=== PATIENT | female | born 1965 | race Caucasian/White ===

== ENCOUNTER 2022-11-26 08:39 | Outpatient (OUT) | payer OTHER, SELFPAY ==
--- NOTE | 2022-11-26 08:46 | CT_ITS ---
The [address] [address] Patient Name: MARY ROSENBAUM MRN: [id number] date: 1965 Sex: F Assigned Patient Location: CT Current Patient Location: CT Accession/Order Number: [id number] Exam Date: 11/26/2022 08:50 Report Date: 11/26/2022 10:15 At the request of: NON-STAFF PHYSICIAN Procedure: CT chest high res EXAMINATION: CT chest high res HISTORY: Chronic Cough R05.3 COMPARISON: No relevant comparison available. TECHNIQUE: Axial images were obtained at 10 mm intervals during inspiration and expiration in the supine and prone positions. No IV contrast given. Dose reduction techniques were achieved by using automated exposure control and/or adjustment of mA and/or kV according to patient size and/or use of iterative reconstruction technique. FINDINGS: LUNGS: 1 cm calcified granuloma within right middle lobe. No acute infiltrates, mass, air trapping, or significant chronic interstitial changes. PLEURA: No mass, effusion, or pneumothorax. CINDI: No mass or adenopathy. MEDIASTINUM: No mass or adenopathy. CHEST WALL: 1.2 cm nodule within upper inner quadrant of left breast. No axillary mass or lymphadenopathy. LIMITED ABDOMEN: No suspicious findings. Limited images of the upper abdomen. OTHER: Mechanical fusion lower cervical spine. CT/CT chest high res IMPRESSION: 1. No acute infiltrates or significant chronic interstitial changes. 2. No lymphadenopathy. 3. Upper inner quadrant of left breast contains a 1.2 cm nodule versus island of fibroglandular tissue. Mammography and ultrasound evaluation recommended. Electronically authenticated by: ANA MARÍA SANTOS Date: 11/26/2022 10:15
== END 2022-11-26 08:40 | disposition home or self-care (01) ==
LOC: CT 08:39
PROVIDERS: PCP Family Medicine
DX: R05.3 Chronic cough (principal)
CPT/HCPCS: 71250

== ENCOUNTER 2024-10-12 07:11 | Emergency (ER) | payer OTHER, SELFPAY ==
--- OUTSIDE RECORDS SUMMARY | 2023-09-09 09:00 | XMS_ITS ---
Author Organization The [facility] in [place] Address [address] [place] [address] Care Team Providers Care Supervisor Body Assembly Name Role Phone Chris Rand DO Primary Care Provider Trevon Green Unavailable [phone] REASON FOR VISIT 6 mo fu w/methacholine challenge [facility] Encounters Encounter Location Date Provider Diagnosis [facility] [place] [address] [facility] [address] [place] [address] 09/09/2023 Trevon Cagle Plan Of Treatment No Information Progress Notes * Re ROSENBAUMDOB:1965 (59 yo F)Acc No.[id number]:09/09/2023 UNLOCKED PROGRESS NOTE Follow Up Patient: Re BARR Provider: Indira Cagle MD :1965 A ge:58 Y S ex:Female Date:09/09/2023 Address:[address] [place], [place] Pcp:Chris Rand DO Subjective: * Chief Complaints: * 1 . 6 mo [facility] [place] * Medical History: Objective: * Vitals: Assessment: Plan: * Treatment: * * Electronic signature of Trevon Cagle MD, [id number] on 10/12/2024 at 07:19 AM EDT Sign off status: Pending Visit Status: O FF CANC (OFFICE CANCEL) * Provider: Indira Cagle MD Date: 0 09/09/2023 Generated for Michael rawls/Samina/Teddy on: 0 10/12/2024 07:19 AM EDT
--- OUTSIDE RECORDS SUMMARY | 2023-09-25 09:15 | XMS_ITS ---
Author Organization The [facility] in [place] Address [address] [place] [address] Care Team Providers Care Legal Administrative Assistant Name Role Phone Chris Rand DO Primary Care Provider Unava ilKayla Estrada Unavailable [phone] REASON FOR VISIT 6 mo fu w/methacholine challenge [facility] [place] Encounters Encounter Location Date Provider Diagnosis [facility] [place] [address] [facility] [address] [place] [address] 09/25/2023 Kayla Brock Plan Of Treatment No Information Progress Notes * Re ROSENBAUMDOB:1965 (59 yo F)Acc No.[id number]:09/25/2023 UNLOCKED PROGRESS NOTE Follow Up Patient: Re BARR Provider: Lia Brock CNP :1965 A ge:58 Y S ex:Female Date:09/25/2023 Address:[address] [facility] Pcp:Chris Rand DO Subjective: * Chief Complaints: * 1 . 6 mo fu w/methacholine challenge [place]. * Medical History: Objective: * Vitals: Assessment: Plan: * Treatment: * * Electronic signature of Kayla Brock [id number] on 10/12/2024 at 07:18 AM EDT Sign off status: Pending Visit Status: R /S (Rescheduled) * Provider: Lia Brock CNP Date: 0 09/25/2023 Generated for Michael rawls/Samina/Teddy on: 0 10/12/2024 07:18 AM EDT
--- OUTSIDE RECORDS SUMMARY | 2023-10-02 09:15 | XMS_ITS ---
Author Organization The [facility] in [place] Address [address] [place] [address] Care Team Providers Care Electrical Tester Battery Name Role Phone Chris Rand DO Primary Care Provider Unava ilKayla Estrada Unavailable [phone] REASON FOR VISIT 6 mo fu w/methacholine challenge [facility] Encounters Encounter Location Date Provider Diagnosis [facility] [address] [place] [address] 10/02/2023 Kayla Brock Plan Of Treatment No Information Progress Notes * Re ROSENBAUMDOB:1965 (59 yo F)Acc No.[id number]:10/02/2023 UNLOCKED PROGRESS NOTE Follow Up Patient: Re BARR Provider: Lia Brock CNP :1965 A ge:58 Y S ex:Female Date:10/02/2023 [address] [place] Pcp:Chris Rand DO Subjective: * Chief Complaints: * 1 . 6 mo fu w/methacholine challenge [facility]. * Medical History: Objective: * Vitals: Assessment: Plan: * Treatment: * * Electronic signature of Kayla Brock [email or web address] on 10/12/2024 at 07:18 AM EDT Sign off status: Pending Visit Status: O FF CANC (OFFICE CANCEL) * Provider: Lia Brock CNP Date: 0 10/02/2023 Generated for Michael rawls/Samina/Teddy on: 0 10/12/2024 07:18 AM EDT
[2024-10-12 07:14] VITALS: BP 148/103; PULSE 97; TEMP 36.7; O2SAT 97; BMI 32.1
--- OUTSIDE RECORDS SUMMARY | 2024-10-12 07:18 | XMS_ITS | Encounter Summary ---
Author Organization [facility] Address [address] [place] [address] Care Team Providers Care Linux Devops Engineer Name Role Phone Chris Rand DO Primary Care Provider +1- [phone] Encounter Details Date Type Department Care Team (Late st Contact Info) Description 12/09/2022 Abstract [facility] [address] [facility] 230 [place] [address] Chris Rand DO [address] [facility] [address] [place] [address] Social History Tobacco Use Types Packs/Day Years Used Date Smoking Tobacco: Former Cigarettes Smokeless Tobacco: Never Comments:Last smoked : 1- 5 years Alcohol Use Standard Drinks/Week Comments Yes 2 (1 standard drink = 0.6 oz pure alcohol) caffeine intake : coffee,soda 6-7 cups per day PHQ-2 Answer Date Recorded Patient Health Questionnaire-2 Score 0 09/12/2022 Comments Unknown Sex and Gender Information Value Date Recorded Sex Assigned at Not on file Legal Sex Female 7:10 PM EDT Gender Identity Not on file Sexual Orientation Not on file documented as of this encounter Plan of Treatment Not on file documented as of this encounter Visit Diagnoses Not on filedocumented in this encounter Care Teams Linux Devops Engineer Relationship Specialty Start Date End Date Chris Rand DO [address] [facility] [address] [place] [address] PCP - General Family Medicine 08/22/22 documented as of this encounter
--- OUTSIDE RECORDS SUMMARY | 2024-10-12 07:18 | XMS_ITS | Encounter Summary ---
Author Organization [facility] Address [address] [place] [address] Care Team Providers Care Knocker Out Name Role Phone Chris Rand DO Primary Care Provider +1- [phone] Encounter Details Date Type Department Care Team ([facility] st Contact Info) Description 08/27/2022 Abstract [facility] [address] [facility] 230 [place] [address] Chris Rand DO [address] [facility] 230 [place] [address] Social History Tobacco Use Types Packs/Day Years Used Date Smoking Tobacco: Former Cigarettes Smokeless Tobacco: Never Tobacco Cessation:Counseling Given: Not Answered Alcohol Use Standard Drinks/Week Comments Yes 2 (1 standard drink = 0.6 oz pur e alcohol) Comments Unknown Sex and Gender Information Value Date Recorded Sex Assigned at Not on file Legal Sex Female 7:10 PM EDT Gender Identity Not on file Sexual Orientation Not on file documented as of this encounter Plan of Treatment Not on file documented as of this encounter Visit Diagnoses Not on filedocumented in this encounter Care Teams Knocker Out Relationship Specialty Start Date End Date Chris Rand DO [address] [facility] 230 [place] [address] PCP - General Family Medicine 08/22/22 documented as of this encounter
--- OUTSIDE RECORDS SUMMARY | 2024-10-12 07:18 | XMS_ITS | Encounter Summary ---
Author Organization [facility] Address [address] [place] [address] Care Team Providers Care Over Hauler Helper Name Role Phone Chris Rand DO Primary Care Provider +1- [phone] Encounter Details Date Type Department Care Team (Late st Contact Info) Description 10/23/2022 Abstract [facility] [address] [facility] [address] [place] [address] Himanshu Lea, PT [address] [place] [address] Social History Tobacco Use Types Packs/Day Years Used Date Smoking Tobacco: Former Cigarettes Smokeless Tobacco: Never Alcohol Use Standard Drinks/Week Comments Yes 2 (1 standard drink = 0.6 oz pur e alcohol) PHQ-2 Answer Date Recorded Patient Health Questionnaire-2 [...] on filedocumented in this encounter Care Teams Over Hauler Helper Relationship Specialty Start Date End Date Chris Rand DO [address] [place] [address] PCP - General Family Medicine 08/22/22 documented as of this encounter
--- OUTSIDE RECORDS SUMMARY | 2024-10-12 07:18 | XMS_ITS | Encounter Summary ---
Author Organization [facility] Address [address] [place] [address] Care Team Providers Care Resort Desk Clerk Name Role Phone Chris Rand DO Primary Care Provider +1- [phone] Encounter Details Date Type Department Care Team (Late st Contact Info) Description 11/15/2022 Abstract [facility] [address] [facility] 230 [place] [address] Chris Rand DO [address] [facility] [address] [place] [address] Social History Tobacco Use Types Packs/Day Years [...] on filedocumented in this encounter Care Teams Resort Desk Clerk Relationship Specialty Start Date End Date Chris Rand DO [address] [facility] [address] [place] [address] PCP - General Family Medicine 08/22/22 documented as of this encounter
--- OUTSIDE RECORDS SUMMARY | 2024-10-12 07:18 | XMS_ITS | Encounter Summary ---
Author Organization [facility] Address [address] [place] [address] Care Team Providers Care Company Marker Name Role Phone Chris Rand DO Primary Care Provider +1- [phone] Encounter Details Date Type Department Care Team ([facility] st Contact Info) Description 11/19/2022 Abstract [facility] [place] [facility] [address] [place] [address] Lg Christian DO [address] [place] [address] Social History Tobacco Use Types Packs/Day Years Used Date Smoking Tobacco: Former Cigarettes Smokeless Tobacco: Never Tobacco Cessation:Counseling Given: Not Answered Comments:Last smoked : 1- 5 years Alcohol [...] on filedocumented in this encounter Care Teams Company Marker Relationship Specialty Start Date End Date Chris Rand DO [address] [facility] [place] [address] PCP - General Family Medicine 6/15/23 documented as of this encounter
--- OUTSIDE RECORDS SUMMARY | 2024-10-12 07:18 | XMS_ITS | Encounter Summary ---
Author Organization [facility] Address [address] [place] [address] Care Team Providers Care Instant Powder Supervisor Name Role Phone RhonaChris king Levon HARRELL Primary Care Provider +1- [phone] Encounter Details Date Type Department Care Team ([facility] st Contact Info) Description 11/26/2022 Orders Only [facility] [address] [facility] [place] [address] [place] [address] A, Unknown Practice [address] [place], [place] [address] Social History Tobacco Use Types Packs/Day Years [...] on file documented as of this encounter Procedures Procedure Name Priority Date/Time Associated Diagnosis Comments CT SCAN : CHEST W W/O CONTRAST Routine 11/26/2022 11:41 AM EDT documented in this encounter Results * CT SCAN : CHEST W W/O CONTRAST (11/26/2022 11:41 AM EDT) Anatomical Region Laterality Modality Radiographic Crystal ging us Unknown Practice A IMG XR PROCEDURES Final Resul t documented in this encounter Visit Diagnoses Not on filedocumented in this encounter Care Teams Instant Powder Supervisor Relationship Specialty Start Date End Date Chris Rand DO [address] [facility] 230 [place] [address] PCP - General Family Medicine 08/22/22 documented as of this encounter
--- OUTSIDE RECORDS SUMMARY | 2024-10-12 07:18 | XMS_ITS | Encounter Summary ---
Author Organization [facility] Address [address] [place] [address] Care Team Providers Care Band Presser Name Role Phone Chris Rand DO Primary Care Provider +1- [phone] Reason for Visit * Reason Comments Med Refill Encounter Details Date Type Department Care Team ([facility] Contact Info) Description 08/06/2022 Refill [facility] [address] [facility] 230 [place] [address] Chris Rand DO [address] [facility] [address] [place] [address] Chronic obstructive bronchitis (HCC) Social History Tobacco Use Types Packs/Day Years Used Date Smoking Tobacco: Never Assessed Comments Unknown Sex and Gender Information Value Date Recorded Sex Assigned at Not on file Legal Sex Female 7:10 PM EDT Gender Identity Not on file Sexual Orientation Not on file documented as of this encounter Plan of Treatment Not on file documented as of this encounter Visit Diagnoses Diagnosis Chronic obstructive bronchitis (HCC) Obstructive chronic bronchitis without exacerbation documented in this encounter Care Teams Band Presser Relationship Specialty Start Date End Date Chris Rand DO [address] [facility] 230 [place] [address] PCP - General Family Medicine 08/22/22 documented as of this encounter
--- OUTSIDE RECORDS SUMMARY | 2024-10-12 07:19 | XMS_ITS | Encounter Summary ---
Author Organization [facility] Address [address] [facility] [place] [address] Care Team Providers Care Tax Specialist Name Role Phone Chris Rand DO Primary Care Provider + [phone] Reason for Visit * Reason Comments Medication Refill Encounter Details Date Type Department Care Team (Late st Contact Info) Description 10/27/2018 Refill [facility] [address] [place] [address] James Ruffin DO [address] [place] [address] Medication Refill Social History Tobacco Use Types Packs/Day Years Used Date Smoking Tobacco: Light Smoker Smokeless Tobacco: Never Alcohol Use Standard Drinks/Week Comments Yes 0 (1 standard drink = 0.6 oz pur e alcohol) rarely Comments Unknown Sex and Gender Information Value Date Recorded Sex Assigned at Not on file Legal Sex Female 5:45 AM EST Gender Identity Not on file Sexual Orientation Not on file documented as of this encounter Plan of Treatment Not on file documented as of this encounter Visit Diagnoses Not on filedocumented in this encounter Care Teams Tax Specialist Relationship Specialty Start Date End Date Chris Rand DO [address] [facility] 230 [place] [address] PCP - General Family Medicine 08/12/23 documented as of this encounter
--- OUTSIDE RECORDS SUMMARY | 2024-10-12 07:19 | XMS_ITS | Clinical Summary ---
Author Organization [facility] Address [address] [place] [address] Care Team Providers Care Child And Family Services Specialist Name Role Phone James Rangel Primary Care Provider Unav ailable Social History Tobacco Use Types Packs/Day Years Used Date Smoking Tobacco: Never Assessed Comments Unknown Sex and Gender Information Value Date Recorded Sex Assigned at Not on file Legal Sex Female 10:02 AM EST Gender Identity Not on file Sexual Orientation Not on file Plan of Treatment Health Maintenance Due Date Last Done Comments Anxiety Screening 05/09/1985 Depression Screening 05/09/1985 HIV Screening 05/09/1985 Hepatitis C Screening 05/09/1985 DTaP,Tdap,Td Vaccine (1 - Tdap) 05/09/1986 Hepatitis B Vaccine (1 of 3 - 19+ 3-dose series) 05/09 Cervical Cancer Screening 05/09/[address] Colonography 05/09/2012 Cologuard (FIT-DNA) 05/09/2012 Colonoscopy 05/09/2012 Colorectal Cancer Screening 05/09/2012 Diabetes Screening 05/09/2012 Fecal Occult Blood 05/09/2012 Lipid Screening 05/09/2012 Sigmoidoscopy 05/09/2012 Pneumococcal Vaccine: 50+ (1 of 1 - PCV) 05/09/2017 Shingrix Vaccine (1 of 2) 05/09/2017 Influenza Vaccine (#1) 2024 Insurance [employer]ED [employer] HMO Care Teams Child And Family Services Specialist Relationship Specialty Start Date End Date James Rangel PCP - General 04/26/03
--- OUTSIDE RECORDS SUMMARY | 2024-10-12 07:19 | XMS_ITS | Encounter Summary ---
Author Organization [facility] Address [address] [place] [address] Care Team Providers Care Cpr Ambulance Driver Name Role Phone Chris Rand Levon HARRELL Primary Care Provider +1- [phone] Encounter Details Date Type Department Care Team ([facility] st Contact Info) Description 05/11/2024 Orders Only [facility] [address] [place] [address] Himanshu Navarro DO [address] [place] [address] Social History Tobacco Use Types Packs/Day Years Used Date Smoking Tobacco: Former Cigarettes Smokeless Tobacco: Never Comments:Last smoked : 1- 5 years Alcohol Use Standard Drinks/Week Comments Yes 2 (1 standard drink = 0.6 oz pure alcohol) caffeine intake : coffee,soda 6-7 cups per day PHQ-2 Answer Date Recorded Patient Health Questionnaire-2 Score 0 09/12/2022 Comments No Sex and Gender Information Value Date Recorded Sex Assigned at Not on file Legal Sex Female 7:10 PM EDT Gender Identity Not on file Sexual Orientation Not on file documented as of this encounter Plan of Treatment Not on file documented as of this encounter Procedures Procedure Name Priority Date/Time Associated Diagnosis Comments ECG 12-LEAD Routine 05/11/2024 1:28 PM EST documented in this encounter Results * ECG 12 lead (05/11/2024 1:28 PM EST) us Himanshu Navarro DO ECG ORDERABLES Final Result documented in this encounter Visit Diagnoses Not on filedocumented in this encounter Care Teams Cpr Ambulance Driver Relationship Specialty Start Date End Date Chris Rand DO [address] [facility] [address] [place] [id number] PCP - General Family Medicine 08/22/22 documented as of this encounter
--- OUTSIDE RECORDS SUMMARY | 2024-10-12 07:19 | XMS_ITS | Encounter Summary ---
Author Organization [facility] Address [address] [place] [address] Care Team Providers Care Perennial House Manager Name Role Phone Chris Rand DO Primary Care Provider +1- [phone] Reason for Visit * Reason Comments Med Refill Encounter Details Date Type Department Care Team ([facility] [address] Contact Info) Description 04/07/20[facility] [address] [facility] [address] [place] [address] [place] [phone] Chris Rand DO [address] [facility] [address] [place] [address] Urge incontinence of urine Social History Tobacco Use Types Packs/Day Years [...] as of this encounter Visit Diagnoses Diagnosis Urge incontinence of urine Urge incontinence documented in this encounter Care Teams Perennial House Manager Relationship Specialty Start Date End Date Chris Rand DO [address] [facility] [address] [place] [address] PCP - General Family Medicine 6/15/23 documented as of this encounter
--- OUTSIDE RECORDS SUMMARY | 2024-10-12 07:19 | XMS_ITS | Encounter Summary ---
Author Organization [facility] Address [address] [place] [address] Care Team Providers Care Multifocal Lens Assembler Name Role Phone Chris Rand DO Primary Care Provider +1- [phone] Reason for Visit * Reason Comments Med Refill Encounter Details Date Type Department Care Team ([facility] Contact Info) Description [facility] [address] [facility] [address] [place] [address] Chris Rand DO [address] [facility] [address] [place] [address] Urge incontinence of urine Social History Tobacco [...] incontinence documented in this encounter Care Teams Multifocal Lens Assembler Relationship Specialty Start Date End Date Chris Rand DO [address] [facility] [address] [place] [address] PCP - General Family Medicine 6/15/23 documented as of this encounter
--- OUTSIDE RECORDS SUMMARY | 2024-10-12 07:19 | XMS_ITS | Encounter Summary ---
Author Organization [facility] Address [address] [place] [address] Care Team Providers Care Tile Classifier Name Role Phone Norma Rand DO Primary Care Provider +1- [phone] Encounter Details Date Type Department Care Team ([facility] st Contact Info) Description 07/23/2023 Clinisync Result Encounter [facility] External Department Unsolicited Norma Rand, DO [address] [facility] [address] [id number] Social History Tobacco Use Types Packs/Day Years [...] Procedure Name Priority Date/Time Associated Diagnosis Comments ECHO TRANSTHORACIC COMPLETE 07/23/2023 10:57 AM EDT documented in this encounter Results * ECHO TRANSTHORACIC COMPLETE (07/23/2023 10:57 AM EDT) Anatomical Region Laterality Modality Other 07/23/2023 10:5 7 AM EDT Narrative 07/23/2023 2:18 PM EDT Echocardiology Procedure Exam Date/Time Accession # Ordering Echo Transthoracic 07/23/2023 11:38 EDT [id number] MAURA HARRELL NORMA Complete CPT code 53951 03212 Reason for Exam (Echo Transthoracic Complete) Murmur R01.1 Report [facility] [address] [place] [address] Adult Echocardiogram Report Name: MARY ROSENBAUM Study Date: 07/23/2023 11:02 AM BP: 142/77 mmHg Patient Location: [facility] HR: 92 : 1965 Gender: Female Height: 61 in Age: 58 yrs Ethnicity: [facility] Weight: 180 lb Reason For Study: Murmur R01.1 BSA: 1.8 m2 History: Palpitations,Family HX CAD Ordering Physician: ARLETH Referring Physician: NORMA RAND Performed By: Mare Valladares, AZAM, RVT Interpretation Summary Left ventricular systolic function is normal. Ejection Fraction = 60-65%. No obvious regional wall motion abnormalities noted Tissue Doppler sampling consistent with abnormal diastolic function. Procedure A complete two-dimensional transthoracic echocardiogram was performed (2D, M- mode, spectral and color flow Doppler). Left Ventricle The left ventricle is normal in size. Left ventricular systolic function is normal. Ejection Fraction = 60-65%. No obvious regional wall motion abnormalities noted. Tissue Doppler sampling consistent with abnormal diastolic function. Left Atrium The left atrial size is normal. There is no atrial septal defect. Right Atrium Right atrial size is normal. Right Ventricle The right ventricular systolic function is normal. The right ventricle is normal size. Echocardiology Report Aortic Valve Aortic valve opening is normal. Not well visualized. No aortic regurgitation. There is no aortic stenosis. Mitral Valve Mitral valve structure is normal. There is Trace mitral regurgitation. No mitral valve stenosis. Tricuspid Valve Structurally normal tricuspid valve. There is trace tricuspid regurgitation. No evidence of tricuspid stenosis. Pulmonic Valve Not well visualized. Arteries The aortic root is normal in size. The ascending aorta was not well visualized on this exam. Venous The inferior vena cava is normal in size, and collapses normally with respiration. Effusion There is no pericardial effusion. MMode/2D Measurements & Calculations RVDd: 2.3 cm LVIDd: 4.1 cm FS: 38.3 % Ao root diam: 2.6 cm IVSd: 1.3 cm LVIDs: 2.5 cm EDV(Teich): 72.5 ml Ao root area: 5.5 cm2 LVPWd: 0.90 cm ESV(Teich): 22.4 ml LA dimension: 3.2 cm EF(Teich): 69.1 % LVOT diam: 2.0 cm LVLd ap4: 8.1 cm EDV(MOD-sp2): 73.3 ml SV(MOD-sp4): 42.2 ml LVOT area: 3.1 cm2 EDV(MOD-sp4): 66.1 ml ESV(MOD-sp2): 22.0 ml LVLs ap4: 6.6 cm EF(MOD-sp2): 70.0 % ESV(MOD-sp4): 23.9 ml EF(MOD-sp4): 63.8 % TAPSE: 2.4 cm IVC Diam: 1.7 cm RV Base_phl: 2.1 cm RVIDd/LVIDd: 0.56 RV Length_phl: 7.5 cm RV Mid_phl: 1.6 cm EF (MOD-bp): 66.5 % LA Vol Index: 11.4 ml/m2 Doppler Measurements & Calculations MV E max steve: 110.0 cm/sec MV dec time: 0.19 sec Ao V2 max: 125.0 cm/sec LV V1 max P.3 mmHg MV A max steve: 108.0 cm/sec Ao max P.3 mmHg LV V1 mean P.0 mmHg MV E/A: 1.0 Ao V2 mean: 86.3 cm/sec LV V1 max: 115.0 cm/sec Lat Peak E' Steve: 10.1 cm/sec Ao mean P.0 mmHg LV V1 mean: 79.3 cm/sec E/E' Lat: 10.9 Ao V2 VTI: 21.0 cm LV V1 VTI: 21.3 cm Med Peak E' Steve: 5.7 cm/sec Echocardiology Report E/E' Med: 19.4 YOUSUF(I,D): 3.2 cm2 YOUSUF(V,D): 2.9 cm2 SV(LVOT): 67.0 ml TR max steve: 240.1 cm/sec RAP systole: 3.0 mmHg AV VR: 0.92 TR max P.1 mmHg YOUSUF(VTI)/BSA_phl: 1.8 RVSP(TR): 26.1 mmHg FINAL REPORT Dictated: 07/23/2023 11:02 am Josue Law MD Signed (Electronic Signature): 07/23/2023 2:18 pm Signed by: Josue Law MD Transcribed by: NAM Technologist: SERA Procedure Note Radiology, Radiologist, - 07/23/2023 Echocardiology Procedure Exam Date/Time Accession #Ordering Echo Transthoracic 07/23/2023 11:38 EDT [id number] HOLLY DO Complete CPT code 17315 [id number] Reason for Exam (Echo Transthoracic Complete) Murmur R01.[address], [id number] Adult EchocardiogramReport Name: MARY ROSENBAUM Study Date: 07/23/2023 11:02 AMBP: 142/77 mmHg [facility] 1965 Gender: FemaleHeight: 61 in Age: 58 yrs Ethnicity: WHTWeight: 180 lb Reason For Study: Murmur R01.1BSA: 1.8 m2 History: Palpitations,Family HX CAD Ordering Physician: ARLETH Referring Physician: NORMA RAND Performed By: Mare Valladares, AZAM, RVT Interpretation Summary Left ventricular systolic function is normal. Ejection Fraction = 60-65%. No obvious regional wall motion abnormalities noted Tissue Doppler sampling consistent with abnormal diastolic function. Procedure A complete two-dimensional transthoracic echocardiogram was performed (2D,M- mode, spectral and color flow Doppler). Left Ventricle The left ventricle is normal in size. Left ventricular systolic functionis normal. Ejection Fraction = 60-65%. No obvious regional wall motion abnormalities noted. Tissue Doppler samplingconsistent with abnormal diastolic function. Left Atrium The left atrial size is normal. There is no atrial septal defect. Right Atrium Right atrial size is normal. Right Ventricle The right ventricular systolic function is normal. The right ventricle isnormal size. Echocardiology Report Aortic Valve Aortic valve opening is normal. Not well visualized. No aorticregurgitation. There is no aortic stenosis. Mitral Valve Mitral valve structure is normal. There is Trace mitral regurgitation. Nomitral valve stenosis. Tricuspid Valve Structurally normal tricuspid valve. There is trace tricuspidregurgitation. No evidence of tricuspid stenosis. Pulmonic Valve Not well visualized. Arteries The aortic root is normal in size. The ascending aorta was not wellvisualized on this exam. Venous The inferior vena cava is normal in size, and collapses normally withrespiration. Effusion There is no pericardial effusion. MMode/2D Measurements & Calculations RVDd: 2.3 cm LVIDd: 4.1 cm FS: 38.3 %Ao root diam: 2.6 cm IVSd: 1.3 cm LVIDs: 2.5 cm EDV(Teich):72.5 ml Ao root area: 5.5 cm2 LVPWd: 0.90 cm ESV(Teich):22.4 ml LA dimension: 3.2 cm EF(Teich):69.1 % LVOT diam: 2.0 cm LVLd ap4: 8.1 cm EDV(MOD-sp2):73.3 ml SV(MOD-sp4): 42.2 ml LVOT area: 3.1 cm2 EDV(MOD-sp4): 66.1 ml ESV(MOD-sp2):22.0 ml LVLs ap4: 6.6 cm EF(MOD-sp2):70.0 % ESV(MOD-sp4): 23.9 ml EF(MOD-sp4): 63.8 % TAPSE: 2.4 cm IVC Diam: 1.7 cm RV Base_phl:2.1 cm RVIDd/LVIDd: 0.56 RVLength_phl: 7.5 cm RV Mid_phl:1.6 cm EF (MOD-bp): 66.5 % LA Vol Index: 11.4 ml/m2 Doppler Measurements & Calculations MV E max steve: 110.0 cm/sec MV dec time: 0.19 sec Ao V2 max:125.0 cm/sec LV V1 max P.3 mmHg MV A max steve: 108.0 cm/sec Ao max P.3 mmHg LV V1 mean P.0 mmHg MV E/A: 1.0 Ao V2mean: 86.3 cm/sec LV V1 max: 115.0 cm/sec Lat Peak E' Steve: 10.1 cm/sec Ao meanP.0 mmHg LV V1 mean: 79.3 cm/sec E/E' Lat: 10.9 Ao V2 VTI:21.0 cm LV V1 VTI: 21.3 cm Med Peak E' Steve: 5.7 cm/sec Echocardiology Report E/E' Med: 19.4 YOUSUF(I,D):3.2 cm2 YOUSUF(V,D):2.9 cm2 SV(LVOT): 67.0 ml TR max steve: 240.1 cm/sec RAPsystole: 3.0 mmHg AV VR: 0.92 TR max P.1 mmHg YOUSUF(VTI)/BSA_phl: 1.8 RVSP(TR): 26.1 mmHg FINAL REPORT Dictated: 07/23/2023 11:02 am Josue Law MD Signed (Electronic Signature): 07/23/2023 2:18 pm Signed by: Josue Law MD Transcribed by: NAM Technologist: us Norma Rand DO [facility] Final Re sult documented in this encounter Visit Diagnoses Not on filedocumented in this encounter Care Teams Tile Classifier Relationship Specialty Start Date End Date Norma Rand DO [address] [place] [address] PCP - General Family Medicine 08/22/22 documented as of this encounter
--- OUTSIDE RECORDS SUMMARY | 2024-10-12 07:19 | XMS_ITS | Clinical Summary ---
Author Organization [facility] Address [address], [address] [place] [address] Care Team Providers Care Multiple Knife Edge Trimmer Operator Name Role Phone Chris Rand Levon DO Primary Care Provider +1- [phone] Allergies Active Allergy Reactions Criticality Noted Date Comments Celecoxib 04/10/2016 Medications lamoTRIgine (LAMICTAL) 100 MG tablet Take 1 tablet by mouth at bedtime Active pantoprazole (PROTONIX) 40 MG tablet 7 Active DULoxetine (CYMBALTA) 30 MG extended release capsule 2 capsules nightly 0 7 Active amphetamine-dextr oamphetamine (ADDERALL) 20 MG tablet 0 8 Active fluticasone (FLONASE) 50 MCG/ACT nasal spray instill 1 spray into each nostril once daily 0 8 Active albuterol sulfate HFA 108 (90 Base) MCG/ACT inhaler 1 Active Biotin 5 MG TABS Take by mouth daily Active Cholecalciferol (VITAMIN D3) 50 MCG (2000 UT) CAPS Take by mouth Active albuterol sulfate HFA (PROVENTIL;VENTOL IN;PROAIR) 108 (90 Base) MCG/ACT inhaler Inhale 2 puffs into the lungs 2 times daily as needed for Shortness of Breath Active rOPINIRole (REQUIP) 0.25 MG tablet Take 1 tablet by mouth nightly 9 Active rosuvastatin (CRESTOR) 10 MG tablet Take 1 tablet by mouth daily 4 Active solifenacin (VESICARE) 10 MG tablet Take 1 tablet by mouth daily 4 Active vitamin E 100 units capsule 1 capsule every 24 hours Active cariprazine hcl (VRAYLAR) 3 MG CAPS capsule Take 1 capsule by mouth daily Active lamoTRIgine (LAMICTAL) 25 MG tablet Take 1 tablet by mouth 2 times daily Active diclofenac (VOLTAREN) 50 MG EC tablet Take 1 tablet by mouth 2 times daily Active Multiple Vitamins-Minerals (ONE-A-DAY 50 PLUS PO) Take 1 tablet by mouth daily Active Multiple Vitamins-Minerals (PRESERVISION AREDS 2 PO) Take 1 tablet by mouth 2 times daily Active Cobalamin Combinations (NEURIVA PLUS PO) Take 1 tablet by mouth daily Active b complex vitamins capsule Take 1 capsule by mouth daily Active magnesium 30 MG tablet Take 1 tablet by mouth daily Active Calcium Carbonate-Vit D-Min (CALCIUM 1200 PO) Take 1 tablet by mouth daily Active Glucosamine-Chond roitin-MSM 5163-6007-130 MG PACK Take 1 tablet by mouth 2 times daily Active Turmeric 400 MG CAPS Take 1 tablet by mouth daily Active vitamin C (ASCORBIC ACID) 500 MG tablet Take 1 tablet by mouth daily Active Active Problems Problem Noted Date Diagnosed Date Menopausal syndrome 04/10/2016 Overview (10/05/2016): Updating deleted diagnoses Resolved Problems Problem Noted Date Diagnosed Date Resolved Date Screening for malignant neoplasm of colon 08/12/2023 09/11/2023 Family History Medical History Relation Name Comments Breast Cancer Neg Hx Colon Cancer Neg Hx Social History Tobacco Use Types Packs/Day Years Used Date Smoking Tobacco: Former Smokeless Tobacco: Never Alcohol Use Standard Drinks/Week Comments Yes 0 (1 standard drink = 0.6 oz pur e alcohol) rarely Comments No Sex and Gender Information Value Date Recorded Sex Assigned at Not on file Legal Sex Female 5:45 AM EST Gender Identity Not on file Sexual Orientation Not on file Last Filed Vital Signs Vital Sign Reading Time Taken Comments Blood Pressure 116/58 08/12/2023 11:20 AM EDT Pulse 74 08/12/2023 11:20 AM EDT Temperature 36.7 C (98 F) 08/12/2023 9:37 AM EDT Respiratory Rate 16 08/12/2023 11:20 AM EDT Oxygen Saturation 98% 08/12/2023 11:20 AM EDT Inhaled Oxygen Concentration - - Weight 78.9 kg (174 lb) 08/12/2023 9:37 AM EDT Height 154.9 cm (5' 1 ) 08/12/2023 9:37 AM EDT Body Mass Index 32.88 08/12/2023 9:37 AM EDT Plan of Treatment Health Maintenance Due Date Last Done Comments Depression Screen 1979 HIV screen 05/09/1982 Hepatitis C screen 05/09/1985 Hepatitis B vaccine (1 of 3 - 19+ 3-dose series) 05/09/1986 Lipids 2007 FIT/FOBT: Average risk 05/09/2012 Fecal-DNA (Cologuard): Average risk 05/09/2012 Sigmoidoscopy/CT colonography 05/09/2012 Pneumococcal 50+ years Vaccine (1 of 1 - PCV) 05/09/2017 Shingles vaccine (1 of 2) 05/09/2017 COVID-19 Vaccine (1 - 2023-2 5 season) 2023 Flu vaccine (#1) 10/08/2024 12/20/2016 Breast cancer screen 02/11/2025 02/11/2023 DTaP/Tdap/Td vaccine (2 - Td or Tdap) 01/26/2028 01/25/2018 Colonoscopy 08/11/2033 08/12/2023, 08/12/2023 Colorectal Cancer Screen 08/11/2033 Cervical cancer screen Discontinued HPV (without or with Pap) Discontinued 05/23/2020 Pap smear Discontinued 05/23/2020, 05/11/2014 Hepatitis A vaccine Aged Out No longe r eligible based on patient's age to complete this topic Hib vaccine Aged Out No longer eligi ble based on patient's age to complete this topic Meningococcal (ACWY) vaccine Aged Out No longer eligible based on patient's age to complete this topic Meningococcal B vaccine Aged Out No l onger eligible based on patient's age to complete this topic Polio vaccine Aged Out No longer elig ible based on patient's age to complete this topic Procedures Procedure Name Priority Date/Time Associated Diagnosis Comments COLONOSCOPY PROCEDURE Routine 08/12/2023 10:37 AM EDT HUMAN PAPILLOMAVIRUS (HPV) DNA PROBE THIN PREP HIGH RISK Routine 05/23/2020 3:04 PM EDT PAP SMEAR Routine 05/23/2020 3:03 PM EDT Encounter for screening for human papillomavirus (HPV) Pap smear, as part of routine gynecological examination from Last 3 Months or Most Recently Relevant to Health Maintenance Results * Colonoscopy (08/12/2023 10:37 AM EDT) 08/12/2023 10:3 7 AM EDT Narrative [facility] - 08/12/2023 10:37 AM EDT [facility] Patient: MARY ROSENBAUM : 1965 Account: [id number] Sex at : Female Age: 58 Years Procedure: Colonoscopy Date: 08/12/2023 Attending Physician: Elba Urrutia Indications: - Screening for colorectal malignant neoplasm Medications: - See the Anesthesia note for documentation of the administered medications Complications: - No immediate complications. Estimated Blood Loss: - Estimated blood loss: none. Procedure: - The Colonoscope was introduced through the anus and advanced to the cecum, identified by appendiceal orifice and ileocecal valve. - The colonoscopy was performed without difficulty. - The patient tolerated the procedure well. - The quality of the bowel preparation was good. - The ileocecal valve, appendiceal orifice, and rectum were photographed. Findings: - A few small-mouthed diverticula were found in the sigmoid colon. There was no evidence of diverticular bleeding. Impression: - Mild diverticulosis in the sigmoid colon. There was no evidence of diverticular bleeding. - No specimens collected. Recommendation: - Repeat colonoscopy in 10 years for surveillance. Procedure Code(s): - G0121, Colorectal cancer screening; colonoscopy on individual not meeting criteria for high risk Diagnosis Code(s): - Z12.11, Encounter for screening for malignant neoplasm of colon - K57.30, Diverticulosis of large intestine without perforation or abscess without bleeding CPT(R) - 2023 copyright [employer]. All Rights Reserved. The CPT codes, CCI edits and ICD codes generated are intended as suggestions and were generated based on input data. These codes are preliminary and upon marine cargo surveyor review may be revised to meet current compliance and payer requirements. The provider is responsible for the final determination of appropriate codes, and modifiers. Scope Withdrawal Time: 00:09:36 Elba Urrutia MD This document has been electronically signed. Note Initiated:08/12/2023 Note Completed:08/12/2023 11:05 AM Procedure Note Juli Urrutia MD - 08/12/2023 [facility] Patient: MARY ROSENBAUM : 1965 Account: [id number] Sex at : Female Age: 58 Years Procedure: Colonoscopy Date: 08/12/2023 Attending Physician: Elba Urrutia Indications: - Screening for colorectal malignant neoplasm Medications: - See the Anesthesia note for documentation of the administeredmedications Complications: - No immediate complications. Estimated Blood Loss: - Estimated blood loss: none. Procedure: - The Colonoscope was introduced through the anus and advanced tothe cecum, identified by appendiceal orifice and ileocecal valve. - The colonoscopy was performed without difficulty. - The patient tolerated the procedure well. - The quality of the bowel preparation was good. - The ileocecal valve, appendiceal orifice, and rectum werephotographed. Findings: - A few small-mouthed diverticula were found in the sigmoid colon.There was no evidence of diverticular bleeding. Impression: - Mild diverticulosis in the sigmoid colon. There was no evidenceof diverticular bleeding. - No specimens collected. Recommendation: - Repeat colonoscopy in 10 years for surveillance. Procedure Code(s): - G0121, Colorectal cancer screening; colonoscopy on individual notmeeting criteria for high risk Diagnosis Code(s): - Z12.11, Encounter for screening for malignant neoplasm of colon - K57.30, Diverticulosis of large intestine without perforation orabscess without bleeding CPT(R) - 2023 copyright [employer]. All RightsReserved. The CPT codes, CCI edits and ICD codes generated are intended assuggestions and were generated based on input data. These codes are preliminaryand upon marine cargo surveyor review may be revised to meet current compliance and payerrequirements. The provider is responsible for the final determination ofappropriate codes, and modifiers. Scope Withdrawal Time: 00:09:36 Elba Urrutia MD This document has been electronically signed. Note Initiated:08/12/2023 Note Completed:08/12/2023 11:05 AM Juli Urrutia MD ENDOSCOPY ORDERABLES Final Res ult [facility] * Human papillomavirus (HPV) DNA probe thin prep high risk (05/23/2020 3:04 PM EDT) HPV Genotype 16 Not Detected Not Detected 05/26/2020 9:45 AM EDT [facility] HPV Type 18 Not Detected Not Detected 05/26/2020 9:45 AM EDT [facility] HPVOH (Other Types) Not Detected Not Detected 05/26/2020 9:45 AM EDT [facility] Comment:*Includes 31,33,35,3 9,45,51,52,56,58,59,66,68 genotypes HPV Comment See below 05/23/2020 3:04 PM EDT [facility] Comment: This is information only. See above for results. HPV other genotypes: 31,33,35,39,45,51,52,56,58,59,66,68 The Theresa Eunice HPV Test is a qualitative in-vitro test for the detection of Human Papillomavirus that provides specific genotyping information for HPV Types 16 and 18, while concurrently detecting 12 other high-risk HPV types 31,33,35, 39,45,51,52,56,58,59,66,68 in a pooled result. The test utilizes amplification of target DNA by Polymerase Chain Reaction (PCR) and nucleic acid hybridization. . 05/23/2020 3:04 PM EDT 05/25/2020 10:54 AM EDT us Eufemia Valadez DO HEMATOLOGY ORDERABLES Final Result [facility] [address] [place] [address], [facility] [phone] [facility] [address] [place] [address], [facility] [phone] * PAP SMEAR (05/23/2020 3:03 PM EDT) SPECIMEN FROM CERVIX OR VAGINA / Unknown 05/23/2020 3:03 PM EDT 05/24/2020 7:37 AM EDT [facility] - 05/29/2020 11:36 AM EDT [facility] [address] [place] [id number] FINAL CYTOLOGY PAP REPORT Patient Name: MARY ROSENBAUM Accession No: [id number] Age Sex: 1965 55 Y / F [facility] Account No: [id number] Collected: 05/23/2020 Med Rec No: [id number] Received: 05/24/2020 Attend Phys: EUFEMIA VALADEZ Completed: 05/29/2020 Perform Phys: EUFEMIA VALADEZ GENERAL CATEGORIZATION: Negative for Intraepithelial Lesion or Malignancy SPECIMEN ADEQUACY: Satisfactory for Evaluation Specimen: THINPREP LIQUID BASE IMAGED DIAGNOSTIC History: Source: Thin Prep Site: Vaginal History: Previous abnormal smear? None given History of CA? None given Lab Order#: [id number] Test Name Collected D&T Result HPV Type 16 05/23/2020 Not Detected HPV Type 18 05/23/2020 Not Detected HPVOH (Other types) 05/23/2020 Not Detected HPV Comment 05/23/2020 See below Test Comment: This is information only. See above for results. HPV other genotypes: 31,33,35,39,45,51,52,56,58,59,66,68 The Theresa Eunice HPV Test is a qualitative in-vitro test for the detection of Human Papillomavirus that provides specific genotyping information for HPV Types 16 and 18, while concurrently detecting 12 other high-risk HPV types 31,33,35, 39,45,51,52,56,58,59,66,68 in a pooled result. The test utilizes amplification of target DNA by Polymerase Chain Reaction (PCR) and nucleic acid hybridization. CPT: Technical: 38528 X1 Screened by: SHARA KRAUSE(ASCP) SHARA KRAUSE(ASCP) 05/29/2020 Electronically signed out by Cervical cytology is a screening test primarily for squamous cancers and precursors and has associated false negative and positive results. New technologies such as liquid based sampling may decrease but not eliminate all false negative results. Please refer to established guidelines All gynecologic cytology specimen processing and diagnostic testing is processed and screened using a [employer] Advisor at [facility] [address] [place] [address] All abnormal gynecologic interpretation is performed at [facility], unless otherwise noted in the report. Page 1 of 1 Eufemia Valadez DO PATHOLOGY/CYTOLOGY ORDERABLE S Final Result [facility] [address] [place] [address], [facility] [phone] from Last 3 Months or Most Recently Relevant to Health Maintenance Insurance Advance Directives * Full Code (Latest Code Status on File) Date Activated Date Inactivated Comments 08/12/2023 9:04 AM 08/12/2023 1:34 PM Care Teams Multiple Knife Edge Trimmer Operator Relationship Specialty Start Date End Date Chris Rand DO [address] [place] [address] PCP - General Family Medicine 08/12/23
--- OUTSIDE RECORDS SUMMARY | 2024-10-12 07:19 | XMS_ITS | Encounter Summary ---
Author Organization [facility] Address [address] [place] [address] Care Team Providers Care Strategic Sourcing Manager Name Role Phone Chris Rand DO Primary Care Provider +1- [phone] Reason for Visit * Reason Comments Med Refill Encounter Details Date Type Department Care Team ([facility] Contact Info) Description [facility] [address] [facility] [address] [place] [id number] Chris Rand DO [address] [place] [address] Acute pain of left shoulder Social History Tobacco Use Types Packs/Day Years [...] as of this encounter Visit Diagnoses Diagnosis Acute pain of left shoulder documented in this encounter Care Teams Strategic Sourcing Manager Relationship Specialty Start Date End Date Chris Rand DO [address] [facility] [address] [place] [address] PCP - General Family Medicine 08/22/22 documented as of this encounter
--- OUTSIDE RECORDS SUMMARY | 2024-10-12 07:19 | XMS_ITS | Clinical Summary ---
Author Organization [facility] Address [id number] [address] [place] [address] Care Team Providers Care Emergency Medical Technician Name Role Phone Unavailable Primary Care Provider Unavailabl e Social History Tobacco Use Types Packs/Day Years Used Date Smoking Tobacco: Never Assessed Childcare Answer Date Recorded Childcare Unknown 08/19/2018 Employment Answer Date Recorded Employment Unknown 08/19/2018 Comments Unknown Sex and Gender Information Value Date Recorded Sex Assigned at Not on file Legal Sex Female 11:56 AM EDT Gender Identity Not on file Sexual Orientation Not on file Plan of Treatment Not on file Medical Devices Not on file
--- OUTSIDE RECORDS SUMMARY | 2024-10-12 07:19 | XMS_ITS | Encounter Summary ---
Author Organization [facility] Address [address] [place] [address] Care Team Providers Care Draw Bench Operator Name Role Phone Chris Rand DO Primary Care Provider +1- [phone] Encounter Details Date Type Department Care Team (Late st Contact Info) Description 09/03/2024 Abstract [facility] [address] [facility] [address] [place] [address] Chris Rand DO [address] [facility] [address] [place] [address] Social History Tobacco Use Types Packs/Day Years Used Date Smoking Tobacco: Former Cigarettes Smokeless Tobacco: Never Comments:Last smoked : 1- 5 years Alcohol Use Standard Drinks/Week Comments Yes 2 (1 standard drink = 0.6 oz pure alcohol) caffeine intake : coffee,soda 6-7 cups per day PHQ-2 Answer Date Recorded Patient Health Questionnaire-2 Score 0 05/18/2024 Comments No Sex and Gender Information Value Date Recorded Sex Assigned at Not on file Legal Sex Female 7:10 PM EDT Gender Identity Not on file Sexual Orientation Not on file documented as of this encounter Plan of Treatment Not on file documented as of this encounter Visit Diagnoses Not on filedocumented in this encounter Care Teams Draw Bench Operator Relationship Specialty Start Date End Date Chris Rand DO [address] [facility] [address] [place] [address] PCP - General Family Medicine 08/22/22 documented as of this encounter
--- OUTSIDE RECORDS SUMMARY | 2024-10-12 07:19 | XMS_ITS | Encounter Summary ---
Author Organization [facility] Address [address] [place] [address] Care Team Providers Care Tele Tech Name Role Phone Chris Rand DO Primary Care Provider +1- [phone] Reason for Visit * Reason Comments Med Refill Encounter Details Date Type Department Care Team (Special [facility] Contact Info) Description 08/17/2024 [facility]ill [facility] [address] [facility] [address] [place] [address] Chris Rand DO [address] [facility] [address] [place] [address] Acute pain of left shoulder Social History [...] on file documented as of this encounter Miscellaneous Notes * Telephone Encounter - Fozia Khanna LPN - 08/31/2024 9:18 AM EDT PA initiated for [employer] through [facility]. Waiting for insurance to respond. documented in this encounter Plan of Treatment Not on file documented as of this encounter Visit Diagnoses Diagnosis Acute pain of left shoulder documented in this encounter Care Teams Tele Tech Relationship Specialty Start Date End Date Chris Rand DO [address] [facility] [address] [place] [address] PCP - General Family Medicine 08/22/22 documented as of this encounter
--- OUTSIDE RECORDS SUMMARY | 2024-10-12 07:19 | XMS_ITS | Encounter Summary ---
Author Organization [facility] Address [address] [facility] [place] [address] Care Team Providers Care Learning Engineer Name Role Phone Chris Rand DO Primary Care Provider +1- [phone] Encounter Details Date Type Department Care Team (Late st Contact Info) Description 08/11/2023 Orders Only [facility] [address] [facility] [place] [address] Chris Rand DO [address] [place] [address] Social History Tobacco Use Types Packs/Day Years [...] on filedocumented in this encounter Care Teams Learning Engineer Relationship Specialty Start Date End Date Chris Rand DO [address] [place] [address] PCP - General Family Medicine 08/22/22 documented as of this encounter
--- OUTSIDE RECORDS SUMMARY | 2024-10-12 07:19 | XMS_ITS | Encounter Summary ---
Author Organization [facility] Address [address] [place] [address] Care Team Providers Care Photographic Technician Name Role Phone Chris Rand DO Primary Care Provider +1- [phone] Encounter Details Date Type Department Care Team (Late st Contact Info) Description 07/24/2023 Abstract [facility] [address] [facility] 230 [place] [address] Chris Rand DO [address] [facility] [address] [place] [address] Social History Tobacco Use Types Packs/Day Years [...] on filedocumented in this encounter Care Teams Photographic Technician Relationship Specialty Start Date End Date Chrsi Rand DO [address] [facility] [address] [place] [address] PCP - General Family Medicine 08/22/22 documented as of this encounter
--- OUTSIDE RECORDS SUMMARY | 2024-10-12 07:19 | XMS_ITS | Clinical Summary ---
Author Organization [facility] Address [address] [place] [address] Care Team Providers Care Ornamental Iron Erector Name Role Phone Giorgi Chris Levon HARRELL Primary Care Provider +1- [phone] Allergies Active Allergy Reactions Criticality Noted Date Comments Celecoxib Angioedema 04/10/2016 Medications biotin (Biotin 5000) 5 MG capsule 1 capsule 1 (one) time each day at the same time Active Adderall 20 MG tablet every 8 (eight) hours Active DULoxetine (Cymbalta) [address] capsule 1 capsule 1 (one) time each day at the same time Active lamoTRIgine (LaMICtal) 100 MG tablet 25 mg in am 125 pm Active alpha tocopherol (Vitamin E) 100 units capsule 1 capsule 1 (one) time each day at the same time Active calcium acetate (Phoslo) 667 MG capsule Take 1,334 mg by mouth in the morning and 1,334 mg at noon and 1,334 mg in the evening. Take with meals. Active Ascorbic Acid (vitamin C) 500 MG tablet Take 1 tablet by mouth Daily Active b complex vitamins capsule Take 1 capsule by mouth Daily Active Cariprazine HCl 3 MG capsule Take 1 capsule by mouth Daily Active Glucosamine-Chondr oitin-MSM 0429-0472-128 MG pack Take 1 tablet by mouth in the morning and 1 tablet before bedtime. Active rosuvastatin (Crestor) 10 MG tabletIndications: Mixed hyperlipidemia TAKE 1 TABLET BY MOUTH DAILY 90 tablet 2 03/31/19 25 Active Semaglutide,0.25 or 0.5MG/DOS, (Ozempic, 0.25 or 0.5 MG/DOSE,) 2 MG/3ML solution pen-injectorIndica tions:Severe obesity (BMI 35.0-39.9) with comorbidity ([facility]),Bipolar 1 disorder ([facility]),Mixed hyperlipidemia Inject 0.25 mg under the skin 1 (one) time per week 3 mL 1 06/15/19 25 Active Fluticasone-Salmet antonella 250-50 MCG/ACT aerosol powderIndications: Chronic obstructive pulmonary disease, unspecified COPD type ([facility]) Inhale 2 puffs in the morning and 2 puffs before bedtime. 60 each 1 06/15/19 25 Active pantoprazole (ProtoNix) 40 MG EC tabletIndications: Gastroesophageal reflux disease, unspecified whether esophagitis present TAKE 1 TABLET BY MOUTH DAILY 90 tablet 1 07/09/19 25 Active albuterol HFA 90 mcg/act inhalerIndications :Chronic obstructive bronchitis ([facility]) INHALE 2 PUFFS BY MOUTH EVERY 6 HOURS NEEDED FOR WHEEZING 8.5 g 1 07/13/19 25 Active rOPINIRole (Requip) 0.25 MG tabletIndications: RLS (restless legs syndrome) TAKE 1 TABLET BY MOUTH AT BEDTIME 30 tablet 2 07/20/19 25 Active solifenacin (VESIcare) 10 MG tabletIndications: Urge incontinence of urine TAKE 1 TABLET BY MOUTH DAILY 30 tablet 2 08/24/19 25 Active diclofenac (Voltaren) 50 MG EC tabletIndications: Acute pain of left shoulder TAKE 1 TABLET BY MOUTH 2 TIMES A DAY IN THE MORNING AND AT BEDTIME *DO NOT CRUSH CHEW OR SPLIT* 60 tablet 09/21/19 25 Active diclofenac (Voltaren) 50 MG EC tabletIndications: Acute pain of left shoulder TAKE 1 TABLET BY MOUTH EVERY MORNING AND TAKE 1 TABLET BY MOUTH ONCE NIGHTLY AT BEDTIME DO NOT CRUSH, CHEW OR SPLIT 60 tablet 08/17/19 25 025 Discontinued Active Problems Problem Noted Date Diagnosed Date Current smoker 06/14/2024 Overview (06/14/2024): Added secondary to documentation in Social History. Acid reflux 06/14/2024 Chronic right shoulder pain 06/06/2024 Bipolar 1 disorder 08/22/2022 Arthritis, lumbar spine 08/22/2022 Cervical arthritis 08/22/2022 Chronic fatigue 08/22/2022 Chronic obstructive pulmonary disease 08/22/2022 COPD with exacerbation 08/22/2022 Gastroesophageal reflux disease 08/22/2022 IgA deficiency 08/22/2022 Mixed hyperlipidemia 08/22/2022 NAFLD (nonalcoholic fatty liver disease) 023 RLS (restless legs syndrome) 08/22/2022 S/P hysterectomy 08/22/2022 Urge incontinence of urine 08/22/2022 Menopausal syndrome 04/10/2016 Overview (08/22/2022): Updating deleted diagnoses Updating deleted diagnoses Resolved Problems Problem Noted Date Diagnosed Date Resolved Date Numbness 06/14/2024 06/14/2024 Acute bronchitis 06/14/2024 06/14/2024 S/P arthroscopy of right shoulder 06/06/2024 06/14/2024 Tear of left glenoid labrum 10/25/2022 06/14/2024 Acute pain of left shoulder 10/25/2022 07/07/2023 Arthritis pain of hand 08/22/202207/06 Decreased hearing of right ear 08/22/2022 07/07/2023 Obesity (BMI 30-39.9) 08/22/20222024 Vitamin D deficiency 08/22/2022 025 Encounters Date Type Department Care Team Description 09/19/2024 Refill [facility] [address] [place] [address] Chris Rand DO Acute pain of left shoulder 09/03/2024 Abstract [facility] [address] [place] [address] Chris Rand DO 08/25/2024 11:30 AM EDT Treatment [facility] [address] [place] [address] Himanshu Lea, PT Tear of left glenoid labrum, subsequent encounter (Primary Dx); S/P arthroscopy of left shoulder; Chronic left shoulder pain 08/25/2024 Travel 08/23/2024 Refill [facility] [address] [place] [address] Chris Rand, DO Urge incontinence of urine 08/17/2024 Refill [facility] [address] [place] [address] Chris Rand, DO Acute pain of left shoulder 08/16/2024 Refill [facility] [address] [place] [address] Chris Rand, DO Acute pain of left shoulder 08/11/2024 10:30 AM EDT Treatment [facility] [address] [place] [address] Himanshu Lea, PT Tear of left glenoid labrum, subsequent encounter (Primary Dx); S/P arthroscopy of left shoulder; Chronic left shoulder pain 08/11/2024 [employer] [facility] [address] [place] [address] Himanshu Lea, PT 08/11/2024 Travel 08/04/2024 9:15 AM EDT Treatment [facility] [address] [place] [address] Himanshu Lea, PT Tear of left glenoid labrum, subsequent encounter (Primary Dx); S/P arthroscopy of left shoulder; Chronic left shoulder pain 08/04/2024 [employer] [facility] [address] [place] [address] Himanshu Lea, PT 08/04/2024 Travel 07/28/2024 10:00 AM EDT Treatment [facility] [address] [place] [address] Himanshu Lea, PT Tear of left glenoid labrum, subsequent encounter (Primary Dx); S/P arthroscopy of left shoulder; Chronic left shoulder pain 07/28/2024 [employer] [facility] [address] [place] [address] Himanshu Lea, PT 07/28/2024 Travel 07/22/2024 10:00 AM EDT Treatment [facility] [address] [place] [address] Himanshu Lea, PT Tear of left glenoid labrum, subsequent encounter (Primary Dx); S/P arthroscopy of left shoulder; Chronic left shoulder pain 07/22/2024 [employer]sheet [facility] [address] [place] [address] Himanshu Lea, PT 07/22/2024 Travel 07/20/2024 9:45 AM EDT Treatment [facility] [address] [place] [address] Himanshu Lea, PT Tear of left glenoid labrum, subsequent encounter (Primary Dx); S/P arthroscopy of left shoulder; Chronic left shoulder pain 07/20/2024 Refill [facility] [address] [place] [address] Chris Rand, DO Acute pain of left shoulder 07/20/2024 [facility] [address] [place] [address] Himanshu Lea, PT 07/20/2024 Travel 07/17/2024 Refill [facility] [address] [place] [address] Chris Rand, RLS (restless legs syndrome) 07/14/2024 1:30 PM EDT Treatment [facility] [address] [place] [address] Himanshu Lea, PT Tear of left glenoid labrum, subsequent encounter (Primary Dx); S/P arthroscopy of left shoulder; Chronic left shoulder pain 07/14/2024 [employer] flowsheet [facility] [address] [place] [address] Himanshu Lea, PT 07/14/2024 Travel 07/12/2024 Refill [facility] [address] [place] [address] Chris Rand, Chronic obstructive bronchitis (HCC) from Last 3 Months Family History Medical History Relation Name Comments No Known Problems Brother No Known Problems Daughter Atrial fibrillation Mother Depression Mother back and neck problems Mother maker blockage Mother Relation Name Status Comments Brother Alive 1 brother Daughter Alive 1 daughter Father Alive Mother Alive Social History Tobacco Use Types Packs/Day Years Used Date Smoking Tobacco: Former Cigarettes Smokeless Tobacco: Never Tobacco Cessation:Counseling Given: Yes Comments:Last smoked : 1- 5 years Alcohol [...] Sign Reading Time Taken Comments Blood Pressure 120/74 06/14/2024 11:01 AM EDT Pulse 106 06/14/2024 11:01 AM EDT Temperature 36.8 C (98.2 F) 06/14/2024 11:01 AM EDT Respiratory Rate - - Oxygen Saturation 97% 06/14/2024 11:01 AM EDT Inhaled Oxygen Concentration - - Weight 85.7 kg (189 lb) 07/05/2024 9:51 AM EDT Height 152.4 cm (5') 07/05/2024 9:51 AM EDT Body Mass Index 36.91 07/05/2024 9:51 AM EDT Plan of Treatment Health Maintenance Due Date Last Done Comments CT Colonography 1967 FIT-DNA 1967 FIT 1967 FOBT 1967 Sigmoidoscopy 1967 Mammogram 02/12/2024 02/11/2023 Influenza Vaccine (#1) 2024 12/20/2016 Colonoscopy 08/11/2033 08/12/2023, 08/12/2023, 02/08 Colorectal Cancer Screening 08/11/2033 Cervical Cancer Screening Discontinued HPV/Cotest Discontinued 05/23/2020, 05/23/2020 Pap Smear Discontinued 05/23/2020 Procedures Procedure Name Priority Date/Time Associated Diagnosis Comments BI MAMMOGRAM DIAGNOSTIC TOMOSYNTHESIS BILATERAL Routine 02/11/2023 1:15 PM EST Cyst of breast, unspecified laterality COLONOSCOPY Routine 03/05/2016 12:00 PM EST from Last 3 Months or Most Recently Relevant to Health Maintenance Results * Bilateral diagnostic mammogram with tomosynthesis (02/11/2023 1:15 PM EST) Anatomical Region Laterality Modality Breast Bilateral Mammography 02/11/2023 1:20 PM EST Impressions 02/11/2023 1:23 PM EST BIRADS 2 - Benign Recommended follow-up: Routine Screening Mamm Board Certified Radiologists. Accredited by the ACR and FDA. MAMMOGRAPHY IS VERY IMPORTANT TO YOUR HEALTH. THE [employer] GUIDELINES RECOMMEND THAT WOMEN 40 YEARS OF AGE AND OLDER SHOULD HAVE A MAMMOGRAM EVERY YEAR. A REMINDER LETTER WILL BE SENT AT THE APPROPRIATE TIME. THIS FACILITY UTILIZES A REMINDER SYSTEM TO ENSURE ALL PATIENTS RECEIVE REMINDER NOTIFICATIONS AT THE APPROPRIATE TIME BASED ON THE RECOMMENDATIONS OF THIS EXAM. THIS INCLUDES REMINDERS FOR ROUTINE SCREENING MAMMOGRAMS, DIAGNOSTIC MAMMOGRAMS IN WHICH THE PATIENT IS ASKED TO RETURN FOR ADDITIONAL VIEWS, OR OTHER BREAST IMAGING INTERVENTIONS WHEN APPROPRIATE. THE PATIENT WILL BE PLACED IN THE APPROPRIATE REMINDER SYSTEM INCLUDING A REMINDER AT THE APPROPRIATE TIME FOR ANY PENDING ADDITIONAL VIEWS. ELECTRONICALLY SIGNED BY: Cesar Drew MD Narrative 02/11/2023 1:23 PM EST EXAMINATION: BI MAMMOGRAM DIAGNOSTIC TOMOSYNTHESIS BILATERAL CLINICAL HISTORY: breast cysts left nipple tenderness for 6 months. COMPARISON: [facility] from 2014. RESULT: 3-D tomosynthesis imaging of the bilateral breast(s) was performed. Density: Heterogeneously dense [3] There are no suspicious masses or asymmetries, areas of architectural distortion or suspicious areas of microcalcifications. Stable asymmetry within the left medial breast. Few coarse appearing benign calcifications. Procedure Note Cesar Drew MD - 02/11/2023 EXAMINATION: BI MAMMOGRAM DIAGNOSTIC TOMOSYNTHESIS BILATERAL CLINICAL HISTORY: breast cysts left nipple tenderness for 6 months. COMPARISON: [facility] from 2015, 2014. RESULT: 3-D tomosynthesis imaging of the bilateral breast(s) was performed. Density: Heterogeneously dense [3] There are no suspicious masses or asymmetries, areas of architecturaldistortion or suspicious areas of microcalcifications. Stable asymmetrywithin the left medial breast. Few coarse appearing benigncalcifications. IMPRESSION: BIRADS 2 - Benign Recommended follow-up: Routine Screening Mamm Board Certified Radiologists. Accredited by the ACR and FDA. MAMMOGRAPHY IS VERY IMPORTANT TO YOUR HEALTH. THE [employer]UID[employer] RECOMMEND THAT WOMEN 40 YEARS OF AGE AND OLDER SHOULD HAVE AMAMMOGRAM EVERY YEAR. A REMINDER LETTER WILL BE SENT AT THE APPROPRIATE TIME. THIS FACILITYUTILIZES A REMINDER SYSTEM TO ENSURE ALL PATIENTS RECEIVE REMINDERNOTIFICATIONS AT THE APPROPRIATE TIME BASED ON THE RECOMMENDATIONS OF THISEXAM. THIS INCLUDES REMINDERS FOR ROUTINE SCREENING MAMMOGRAMS, DIAGNOSTICMAMMOGRAMS IN WHICH THE PATIENT IS ASKED TO RETURN FOR ADDITIONAL VIEWS,OR OTHER BREAST IMAGING INTERVENTIONS WHEN APPROPRIATE. THE PATIENT WILLBE PLACED IN THE APPROPRIATE REMINDER SYSTEM INCLUDING A REMINDER AT THEAPPROPRIATE TIME FOR ANY PENDING ADDITIONAL VIEWS. ELECTRONICALLY SIGNED BY: Cesar Drew MD Chris Rand DO IMG BI PROCEDURES Final Re sult * Colonoscopy (03/05/2016 12:00 PM EST) Anatomical Region Laterality Modality Endoscopy 03/05/2016 12:0 0 PM EST Narrative 03/14/2016 12:00 PM EST PERFORMED AT [facility] LOCATION:[id number] normal Procedure Note CONVERSION, GENERIC - 07/25/2022 PERFORMED AT [facility] LOCATION:[id number] normal Chris Rand DO ENDOSCOPY PROCEDURE ORDERA BLES Final Result from Last 3 Months or Most Recently Relevant to Health Maintenance Insurance [facility] Care Teams Ornamental Iron Erector Relationship Specialty Start Date End Date Chris Rand DO [address] [address] PCP - General Family Medicine 08/22/22
--- OUTSIDE RECORDS SUMMARY | 2024-10-12 07:19 | XMS_ITS | Patient Health Record ---
Author Organization [facility] [place] Address [address] [place] [address] Care Team Providers Care Make Up Worker Name Role Phone RhonagabrielChris dasilva DO Primary Care Provider Unava ilable Allergies Allergen (clinical drug ingredient) Drug/Non Drug Allergy documented on EMR Reaction Allergy Type Onset Date Status celecoxib Celebrex hives Drug Allergy Active Reason For Referral No Information Medications Medication SIG (Take, Route, Frequency, Duration) Notes Start Date End Date Status Diclofenac 35 MG 1 capsule as needed Orally BID Active Glucosamine MSM Complex - 1 tablet with meals Orally BID 1500 mg Not-Taking lamoTRIgine 25 MG 1 tablet Orally Once a day Active Magnesium Carbonate 250 MG Orally Active Albuterol Sulfate HFA 108 (90 Base) MCG/ACT 2 puff as needed Inhalation every 4 hrs Active Biotin 500 mcg 1 capsule Orally Once a day Active Cymbalta 60 MG 1 capsule Orally Once a day Active Calcium Citrate 1 tablet BID Caclium citrate [id number] in-vit d3 200 [id number] Active VESIcare 10 MG 1 tablet Orally Once a day for 30 day(s) Active Nabumetone 750 MG Orally No t-Taking Vraylar 3 MG 1 capsule Orally Once a day for 30 day(s) Active Pantoprazole Sodium 40 MG Orally Active Multivitamin - one tablet Orally Daily one-a-day Active Requip Active Myrbetriq 25 MG Orally Not- Taking Adderall 20 MG 1 TABLET Orally TID Active ARIPiprazole 2 MG 1 tablet Orally Once a day for 30 day(s) Not-Taking Vitamin E 400 UNIT 1 capsule Orally Once a day Active Advair Diskus 250-50 MCG/ACT 1 puff Inhalation Twice a day Active Baclofen 10 MG Orally PRN Not-T aking PriLOSEC 20 MG 1 capsule Orally Once a day for 30 day(s) Not-Taking ARIPiprazole 10 MG 1 tablet Orally Daily Not-Taking Vitamin D3 2000 UNIT 1 capsule Orally Once a day Active Social History Tobacco Use: Social History Observation Description Date Details (start date - stop date) Former Smoker NA - NA Tobacco Use/Smoking Question Answer Notes Patient is a former smoker How long has it been since you last smoked? 6-12 months Alcohol Screen (Audit-C) Question Answer Notes Did you have a drink containing alcohol in the p ast year? No Points 0 Interpretation Negative Tobacco use other than smoking: Question Answer Notes Are you an other tobacco user? No Section Notes: quit smoking 08/08/15 Tobacco-years of use: 20 years Hobbies or leisure activities: Reading, Traveling, Fishing quit smoking 08/08/15 Tobacco-years of use: 20 years Hobbies or leisure activities: Reading, Traveling, Fishing quit smoking 08/08/15 Tobacco-years of use: 20 years Hobbies or leisure activities: Reading, Traveling, Fishing quit smoking 08/08/15Tobacco-years of use: 20 years Hobbies or leisure activities: Reading, Traveling, Fishing quit smoking 08/08/15Tobacco-years of use: 20 years Hobbies or leisure activities: Reading, Traveling, Fishing quit smoking 08/08/15Tobacco-years of use: 20 years Hobbies or leisure activities: Reading, Traveling, Fishing quit smoking 08/08/15Tobacco-years of use: 20 years Hobbies or leisure activities: Reading, Traveling, Fishing quit smoking 08/08/15Tobacco-years of use: 20 years Hobbies or leisure activities: Reading, Traveling, Fishing quit smoking 08/08/15Tobacco-years of use: 20 years Hobbies or leisure activities: Reading, Traveling, Fishing quit smoking 08/08/15Tobacco-years of use: 20 years Hobbies or leisure activities: Reading, Traveling, Fishing quit smoking 08/08/15Tobacco-years of use: 20 years Hobbies or leisure activities: Reading, Traveling, Fishing quit smoking 08/08/15Tobacco-years of use: 20 years Hobbies or leisure activities: Reading, Traveling, Fishing Smoking status: Former smoker quit 08/08/15 Smoking - how much: None Tobacco-years of use: 20 years Are you on a special diet: No Chewing tobacco: none Do you take illicit drugs: No Alcohol intake: Occasional Have you ever undergone treatment for drug/alcohol problems: No 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 Employer: [employer] Are you working now: Yes Are you retired: No Are you on disability: No Temporary Disability: No Permanent disability: No Job activities: Reach over head , sit, bend, stand, use computer Hobbies or leisure activities: Reading, Traveling, Fishing Problems Problem Type SNOMED Code ICD Code Onset Dates Problem Status W/U Status Risk Notes Problem 262868590 Obesity, unspecified (E66.9) Active confirmed Problem 139659890 Fibromyalgia (M79.7) Active confirmed Problem 869656738 Personal history of nicotine dependence (Z87.891) Active confirmed Problem 32785441 Vitamin D deficiency (E55.9) Active confirmed Problem 627663542 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) Active confirmed Problem 775904781 Cervical myelopathy (G95.9) Active confirmed Problem 43916539 Chronic cough (R05.3) Active confirmed Plan Of Treatment Pending Test Test Name Order Date Methacholine Challenge Testing PFT Complete 07/18/2022 Future Test Test Name Order Date CT Chest High Resolution 11/13/2022 PFT w/Bronchodillator and w/o Body Box-p erformed 12/04/2022 Medical (General) History Medical History History ICD Code Headaches/Migraines Depression Visual problems: glasses Pneumonia - as a child Tuberculosis - as a child Heartburn/Gastritis Arthritis fibromyalgia Depression Pneumonia - as a child Tuberculosis - as a child Heartburn/Gastritis Arthritis Surgical History Surgery Date(Month/Year) Hysterectomy . Dr. Kearns 2005 Anterior cervical discectomy and fusion for decompression 09/12/15
[2024-10-12 07:20] VITALS: BP 133/88
[2024-10-12] MEDS: OXYMETAZOLINE HCL 0.05% NASAL SPRAY 2 SPRAY NS (07:31)
--- NOTE | 2024-10-12 08:20 | ED.EPISTAXI1 ---
HPI - Epistaxis General Chief Complaint: Epistaxis Stated Complaint: BLOODY NOSE Time Seen by Provider: 10/12/24 07:16 Source: patient Mode of arrival: walk-in Limitations: no limitations History of Present Illness HPI Narrative: The patient is coming to the ER with a right sided epistaxis that started almost 6 hours before arrival, tried conservative management and mentioned that pressure as well as ice did not help, patient mentioned that the bleeding started when she was just sitting, she also mentioned that she have a history of perforated nasal septum The patient denies any head trauma or any other concerns and she does not take any anticoagulation Related Data Home Medications ?Medication ?Instructions ?Recorded ?Confirmed albuterol sulfate 90 mcg/actuation 2 inh inhalation Q4H PRN shortness 10/12/24 10/12/24 aerosol inhaler of breath or wheezing dextroamphetamine-amphetamine 20 20 mg PO TID 10/12/24 10/12/24 mg tablet diclofenac sodium 50 mg 50 mg PO DAILY 10/12/24 10/12/24 tablet,delayed release duloxetine 20 mg capsule,delayed 20 mg PO DAILY 10/12/24 10/12/24 release fluticasone 250 mcg-salmeterol 50 1 inh inhalation Q12H 10/12/24 10/12/24 mcg/dose blistr powdr for inhalation lamotrigine 25 mg tablet (Lamictal) 25 mg PO Q12H 10/12/24 10/12/24 lamotrigine 25 mg tablet (Lamictal) 25 mg PO Q12H 10/12/24 10/12/24 pantoprazole 40 mg tablet,delayed 40 mg PO DAILY 10/12/24 10/12/24 release ropinirole 0.25 mg tablet 0.25 mg PO DAILY 10/12/24 10/12/24 rosuvastatin 10 mg tablet 10 mg PO DAILY 10/12/24 10/12/24 Previous Rx's ?Medication ?Instructions ?Recorded cephalexin 500 mg capsule 500 mg PO Q8H 7 days #21 caps 10/12/24 Allergies Allergy/AdvReac Type Severity Reaction Status Date / Time celecoxib (From Celebrex) Allergy Unknown Hives Verified 10/12/24 07:14 Review of Systems ROS Status of ROS 10 or more systems reviewed and unremarkable except as noted in history and below PFSH PFSH Social History Little interest or pleasure in doing things: not at all Feeling down, depressed, or hopeless: not at all Exam Narrative Exam Narrative: Nurses notes and vital signs reviewed and patient is not hypoxic. General: Well-appearing and in no apparent distress. Skin: Warm, dry, no pallor noted. No rash. Head: Normocephalic, atraumatic. Neck: Supple, non-tender. Eye: Pupils are equal, round and EOMI. No scleral icterus. Ears, Nose, Mouth, and Throat: There was an active right sided nasal bleeding mostly anterior although I cannot rule out the posterior bleeding to the patient had only a blood clot in the back of the pharynx that was not actively bleeding. But leaning forward did show that the patient have dribbling of blood from the right nostril. There was no deviation of the septum noticed and the airway was not compromised. Cardiovascular: Regular Rate and Rhythm without murmur, gallop or rub. Respiratory: No accessory muscle use or respiratory distress. Lungs are clear to auscultation, no wheezing, rales or rhonchi Chest Wall: no tenderness Back: No midline thoracic or lumbar vertebral tenderness. No CVA tenderness Musculoskeletal: normal ROM, no calf or popliteal tenderness, no lower extremity edema/swelling GI: Abdomen is soft, non-distended. Normal bowel sounds. No masses appreciated. No tenderness to palpation. No rebound, guarding, or rigidity noted. Neurological: A&O x4. No cranial nerve dysfunction observed. No truncal ataxia. Constitutional Vital Signs, click to edit/add: Last Vital Signs Temp 98.1 F 10/12/24 07:14 Pulse 97 H 10/12/24 07:14 Resp 18 10/12/24 07:14 BP 133/88 10/12/24 07:20 Pulse Ox 97 10/12/24 07:14 O2 Del Method Room Air 10/12/24 07:14 Course Vital Signs Vital signs: Vital Signs Temperature 98.1 F 10/12/24 07:14 Pulse Rate 97 H 10/12/24 07:14 Respiratory Rate 18 10/12/24 07:14 Blood Pressure 148/103 H 10/12/24 07:14 Pulse Oximetry 97 10/12/24 07:14 Oxygen Delivery Method Room Air 10/12/24 07:14 Temperature 98.1 F 10/12/24 07:14 Pulse Rate 97 H 10/12/24 07:14 Respiratory Rate 18 10/12/24 07:14 Blood Pressure 133/88 10/12/24 07:20 Pulse Oximetry 97 10/12/24 07:14 Oxygen Delivery Method Room Air 10/12/24 07:14 MDM - Epistaxis MDM Narrative Medical decision making narrative: The patient on arrival had initially pressure applied in addition to Afrin but the patient continued to bleed with pressure Placement of the Rhino Rocket mostly anterior 5.5 cm was enough to control the bleeding I did call Dr. Oglesby from the ENT service and the patient was already following up with , the patient right now will be discharged to remove the Rhino Rocket after 24 hours she also provided with antibiotic prescription of Keflex just in case the Rhino Rocket will stay more than 24 hours The patient to call your ENT doctor today and make sure that she have an appointment as soon as possible The patient instructed but monitoring symptoms she is to come back to the ER in case of any new symptoms or concerns The patient is to follow up with primary care physician in next 2-3 days or to return to the emergency department should any of the signs or symptoms worsen or new symptoms develop. The patient agrees with the following Diagnosis and Treatment plan and the patient will be discharged home. Discharge Plan Discharge Chief Complaint: Epistaxis Clinical Impression: Epistaxis Patient Disposition: Home, Self-Care Time of Disposition Decision: 08:45 Condition: Good Prescriptions / Home Meds: New cephalexin 500 mg capsule 500 mg PO Q8H 7 Days Qty: 21 0RF No Action albuterol sulfate 90 mcg/actuation HFA aerosol inhaler 2 inh INHALATION Q4H PRN (Reason: shortness of breath or wheezing) dextroamphetamine-amphetamine 20 mg tablet 20 mg PO TID diclofenac sodium 50 mg tablet,delayed release (DR/EC) 50 mg PO DAILY fluticasone propion-salmeterol 250-50 mcg/dose blister with device 1 inh INHALATION Q12H pantoprazole 40 mg tablet,delayed release (DR/EC) 40 mg PO DAILY ropinirole 0.25 mg tablet 0.25 mg PO DAILY rosuvastatin 10 mg tablet 10 mg PO DAILY duloxetine 20 mg capsule,delayed release(DR/EC) 20 mg PO DAILY lamotrigine [Lamictal] 25 mg tablet 25 mg PO Q12H lamotrigine [Lamictal] 25 mg tablet 25 mg PO Q12H Print Language: Tamazight Instructions: Nosebleed (ED) Referrals: BRITTNY GOMES [Physician] - As soon as possible NORMA LORENZO [Primary Care Provider, Unknown] - 1 week
[2024-10-12 09:17] VITALS: BP 121/91; PULSE 87; O2SAT 98
== END 2024-10-12 09:17 | disposition home or self-care (01) ==
PROVIDERS: Emergency Provider Emergency Medicine; PCP Family Medicine
DX: R04.0 Epistaxis (principal)
CPT/HCPCS: 30901; 99283

== ENCOUNTER 2024-10-15 11:30 | Emergency (ER) | payer OTHER, SELFPAY ==
[2024-10-15 11:34] VITALS: BP 147/87; PULSE 110; TEMP 36.9; O2SAT 97; BMI 32.1
--- NOTE | 2024-10-15 11:39 | ED.GENADUL1 ---
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 She had this inflatable nasal packing placed in her right side 3 days ago. She has not had any problems since then. She has not been able to see her ENT physician. Related Data Home Medications ?Medication ?Instructions ?Recorded ?Confirmed albuterol sulfate 90 mcg/actuation 2 inh inhalation Q4H PRN shortness 10/12/24 10/12/24 aerosol inhaler of breath or wheezing dextroamphetamine-amphetamine 20 20 mg PO TID 10/12/24 10/12/24 mg tablet diclofenac sodium 50 mg 50 mg PO DAILY 10/12/24 10/12/24 tablet,delayed release duloxetine 20 mg capsule,delayed 20 mg PO DAILY 10/12/24 10/12/24 release fluticasone 250 mcg-salmeterol 50 1 inh inhalation Q12H 10/12/24 10/12/24 mcg/dose blistr powdr for inhalation lamotrigine 25 mg tablet (Lamictal) 25 mg PO Q12H 10/12/24 10/12/24 lamotrigine 25 mg tablet (Lamictal) 25 mg PO Q12H 10/12/24 10/12/24 pantoprazole 40 mg tablet,delayed 40 mg PO DAILY 10/12/24 10/12/24 release ropinirole 0.25 mg tablet 0.25 mg PO DAILY 10/12/24 10/12/24 rosuvastatin 10 mg tablet 10 mg PO DAILY 10/12/24 10/12/24 Previous Rx's ?Medication ?Instructions ?Recorded cephalexin 500 mg capsule 500 mg PO Q8H 7 days #21 caps 10/12/24 Allergies Allergy/AdvReac Type Severity Reaction Status Date / Time celecoxib (From Celebrex) Allergy Unknown Hives Verified 10/15/24 11:33 Review of Systems ROS Narrative A ten point review of systems is negative except as noted above. PFSH PFSH Social History Little interest or pleasure in doing things: not at all Feeling down, depressed, or hopeless: not at all Exam Narrative Exam Narrative: Nurses note and vital signs reviewed and patient is not hypoxic. General: The patient appears well and in no apparent distress. Patient is resting comfortably on cart. Skin: Warm, dry, no pallor noted. There is no rash noted. Head: Normocephalic, atraumatic Eye: Normal conjunctiva, no drainage Ears, Nose, Mouth, and Throat: oral mucosa is moist. Inflatable packing present on the right side. Cardiovascular: Regular Rate and Rhythm Respiratory: Patient is in no distress, no accessory muscle use Back: non-tender GI: Soft and nontender Musculoskeletal: No joint swelling Neurological: A&O, normal speech Psychiatric: Cooperative Constitutional Vital Signs, click to edit/add: Last Vital Signs Temp 98.4 F 10/15/24 11:34 Pulse 110 H 10/15/24 11:34 Resp 18 10/15/24 11:34 BP 147/87 H 10/15/24 11:34 Pulse Ox 97 10/15/24 11:34 O2 Del Method Room Air 10/15/24 11:34 Course Vital Signs Vital signs: Vital Signs Temperature 98.4 F 10/15/24 11:34 Pulse Rate 110 H 10/15/24 11:34 Respiratory Rate 18 10/15/24 11:34 Blood Pressure 147/87 H 10/15/24 11:34 Pulse Oximetry 97 10/15/24 11:34 Oxygen Delivery Method Room Air 10/15/24 11:34 Temperature 98.4 F 10/15/24 11:34 Pulse Rate 110 H 10/15/24 11:34 Respiratory Rate 18 10/15/24 11:34 Blood Pressure 147/87 H 10/15/24 11:34 Pulse Oximetry 97 10/15/24 11:34 Oxygen Delivery Method Room Air 10/15/24 11:34 Medical Decision Making [facility] Narrative Medical decision making narrative: I have removed the packing and there is no subsequent epistaxis. She was observed here and is able to be discharged. Treatment diagnosis and follow-up were discussed with the patient. Differential Diagnosis Differential Diagnosis: Packing removal Discharge Plan Discharge Chief Complaint: Recheck/Abnormal Lab/Rx Clinical Impression: Encounter for removal of nasal packing Patient Disposition: Home, Self-Care Time of Disposition Decision: 11:41 Condition: Good Mode of Transportation: Private Vehicle Prescriptions / Home Meds: No Action albuterol sulfate 90 mcg/actuation HFA aerosol inhaler 2 inh INHALATION Q4H PRN (Reason: shortness of breath or wheezing) dextroamphetamine-amphetamine 20 mg tablet 20 mg PO TID diclofenac sodium 50 mg tablet,delayed release (DR/EC) 50 mg PO DAILY fluticasone propion-salmeterol 250-50 mcg/dose blister with device 1 inh INHALATION Q12H pantoprazole 40 mg tablet,delayed release (DR/EC) 40 mg PO DAILY ropinirole 0.25 mg tablet 0.25 mg PO DAILY rosuvastatin 10 mg tablet 10 mg PO DAILY duloxetine 20 mg capsule,delayed release(DR/EC) 20 mg PO DAILY lamotrigine [Lamictal] 25 mg tablet 25 mg PO Q12H lamotrigine [Lamictal] 25 mg tablet 25 mg PO Q12H cephalexin 500 mg capsule 500 mg PO Q8H 7 Days Qty: 21 0RF Print Language: Icelandic Instructions: Nosebleed (ED) Referrals: NORMA LORENZO [Primary Care Provider, Unknown] - 1 week
== END 2024-10-15 12:08 | disposition home or self-care (01) ==
PROVIDERS: Emergency Provider Emergency Medicine; PCP Family Medicine
DX: Z48.01 Encounter for change or removal of surgical wound dressing (principal)
CPT/HCPCS: 99281

== ENCOUNTER 2024-12-11 00:01 | Emergency (ER) | payer OTHER, SELFPAY ==
--- OUTSIDE RECORDS SUMMARY | 2023-09-09 09:00 | XMS_ITS ---
Author Organization The [facility] in [place] Address [address] [place] [address] Care Team Providers Care Wire Stitcher Machine Name Role Phone Chris Rand DO Primary Care Provider Trevon Green Unavailable [phone] REASON FOR VISIT 6 mo fu w/methacholine challenge [facility] Encounters Encounter Location Date Provider Diagnosis [facility] [place] [address] [facility] [address] [place] [address] 09/09/2023 Trevon Cagle Plan Of Treatment No Information Progress Notes * Re ROSENBAUMDOB:1965 (59 yo F)Acc No.[id number]:09/09/2023 UNLOCKED PROGRESS NOTE Follow Up Patient: Re BARR Provider: Indira Cagle MD :1965 A ge:58 Y S ex:Female Date:09/09/2023 Address:[address] [place], [place] Pcp:Chris Rand DO Subjective: * Chief Complaints: * 1 . 6 mo fu w/[facility] [place] * Medical History: Objective: * Vitals: Assessment: Plan: * Treatment: * * Electronic signature of Trevon Cagle MD, [id number] on 12/11/2024 at 12:21 AM EDT Sign off status: Pending Visit Status: O FF CANC (OFFICE CANCEL) * Provider: Indira Cagle MD Date: 0 09/09/2023 Generated for Michael rawls/Samina/Teddy on: 1 12:21 AM EDT
--- OUTSIDE RECORDS SUMMARY | 2023-09-25 09:15 | XMS_ITS ---
Author Organization The [facility] in [place] Address [address] [place] [address] Care Team Providers Care Histology Technician Name Role Phone Chirs Rand DO Primary Care Provider Unava ilKayla Estrada Unavailable [phone] REASON FOR VISIT 6 mo fu w/methacholine challenge [facility] [place] Encounters Encounter Location Date Provider Diagnosis [facility] [place] [address] [facility] [address] [place] [address] 09/25/2023 Kayla Brock Plan Of Treatment No Information Progress Notes * Re ROSENBAUMDOB:1965 (59 yo F)Acc No.[id number]:09/25/2023 UNLOCKED PROGRESS NOTE Follow Up Patient: Re BARR Provider: Lia Brock CNP :1965 A ge:58 Y S ex:Female Date:09/25/2023 Address:[address] [facility] Pcp:Chris Rand DO Subjective: * Chief Complaints: * 1 . 6 mo fu w/methacholine challenge [place]. * Medical History: Objective: * Vitals: Assessment: Plan: * Treatment: * * Electronic signature of Kayla Brock [id number] on 12/11/2024 at 12:13 AM EDT Sign off status: Pending Visit Status: R /S (Rescheduled) * Provider: Lia Brock CNP Date: 0 09/25/2023 Generated for Michael rawls/Samina/Teddy on: 1 12:13 AM EDT
[2024-12-11 00:05] VITALS: BP 135/81; PULSE 99; TEMP 36.6; O2SAT 98; BMI 33.6
--- OUTSIDE RECORDS SUMMARY | 2024-12-11 00:10 | XMS_ITS | Encounter Summary ---
Author Organization [facility] Address [address] [place] [address] Care Team Providers Care Account Support Manager Name Role Phone Chris Rand DO Primary Care Provider +1- [phone] Encounter Details Date Type Department Care Team ([facility] st Contact Info) Description 08/27/2022 Abstract [facility] [address] [facility] [address] [place] [phone] Chris Rand DO [address] [facility] [address] [place] [address] Social History Tobacco Use Types Packs/Day Years [...] on filedocumented in this encounter Care Teams Account Support Manager Relationship Specialty Start Date End Date Chris Rand DO [address] [facility] [address] [place] [address] PCP - General Family Medicine 08/22/22 documented as of this encounter
--- OUTSIDE RECORDS SUMMARY | 2024-12-11 00:10 | XMS_ITS | Encounter Summary ---
Author Organization [facility] Address [address] [place] [address] Care Team Providers Care Student Life Coordinator Name Role Phone Chris Rand DO Primary Care Provider +1- [phone] Reason for Visit * Reason Comments Med Refill Encounter Details Date Type Department Care Team ([facility] Contact Info) Description 08/06/2022 Refill [facility] [address] [facility] [address] [place] [phone] Chris Rand DO [address] [facility] [address] [place] [address] Chronic obstructive bronchitis (HCC) Social History Tobacco [...] exacerbation documented in this encounter Care Teams Student Life Coordinator Relationship Specialty Start Date End Date Chris Rand DO [address] [facility] [address] [place] [address] PCP - General Family Medicine 08/22/22 documented as of this encounter
--- OUTSIDE RECORDS SUMMARY | 2024-12-11 00:11 | XMS_ITS | Encounter Summary ---
Author Organization [facility] Address [address] [place] [address] Care Team Providers Care Charge Account Clerk Name Role Phone Chris Rand DO Primary Care Provider +1- [phone] Encounter Details Date Type Department Care Team (Late st Contact Info) Description 12/09/2022 Abstract [facility] [address] [facility] [address] [place] [phone] Chris Rand DO [address] [facility] [address] [place] [address] Social History Tobacco Use Types Packs/Day Years [...] on filedocumented in this encounter Care Teams Charge Account Clerk Relationship Specialty Start Date End Date Chris Rand DO [address] [facility] [address] [place] [address] PCP - General Family Medicine 08/22/22 documented as of this encounter
--- OUTSIDE RECORDS SUMMARY | 2024-12-11 00:11 | XMS_ITS | Encounter Summary ---
Author Organization [facility] Address [address] [place] [address] Care Team Providers Care Pumping Plant Operator Name Role Phone RhonaChris king Levon HARRELL Primary Care Provider +1- [phone] Encounter Details Date Type Department Care Team ([facility] st Contact Info) Description 11/26/2022 Orders Only [facility] [address] [facility] [address] [place] [address] [place] [phone] A, Unknown Practice [address] [place], [place] [id number] Social History Tobacco Use Types Packs/Day Years [...] on filedocumented in this encounter Care Teams Pumping Plant Operator Relationship Specialty Start Date End Date Chris Rand DO [address] [facility] [address] [place] [address] PCP - General Family Medicine 08/22/22 documented as of this encounter
--- OUTSIDE RECORDS SUMMARY | 2024-12-11 00:12 | XMS_ITS | Encounter Summary ---
Author Organization [facility] Address [address] [place] [address] Care Team Providers Care Rotary Furnace Tender Name Role Phone Chris Rand DO Primary Care Provider +1- [phone] Encounter Details Date Type Department Care Team (Late st Contact Info) Description 11/15/2022 Abstract [facility] [address] [facility] [address] [place] [phone] Chris Rand DO [address] [facility] [address] [place] [address] Social History Tobacco Use Types Packs/Day Years [...] on filedocumented in this encounter Care Teams Rotary Furnace Tender Relationship Specialty Start Date End Date Chris Rand DO [address] [facility] [address] [place] [address] PCP - General Family Medicine 08/22/22 documented as of this encounter
--- OUTSIDE RECORDS SUMMARY | 2024-12-11 00:13 | XMS_ITS | Encounter Summary ---
Author Organization [facility] Address [address] [place] [address] Care Team Providers Care Stone Polisher Machine Name Role Phone Chris Rand DO Primary Care Provider +1- [phone] Encounter Details Date Type Department Care Team ([facility] st Contact Info) Description 11/19/2022 Abstract [facility] [place] [facility] [address] [place] [phone] Lg Christian DO [address] [place] [address] Social History Tobacco Use Types Packs/Day Years [...] on filedocumented in this encounter Care Teams Stone Polisher Machine Relationship Specialty Start Date End Date Chris Rand DO [address] [place] [facility] [place] [address] PCP - General Family Medicine 6/15/23 documented as of this encounter
--- OUTSIDE RECORDS SUMMARY | 2024-12-11 00:14 | XMS_ITS | Encounter Summary ---
Author Organization [facility] Address [address] [place] [address] Care Team Providers Care Ancillary Specialist Name Role Phone Chris Rand DO Primary Care Provider +1- [phone] Encounter Details Date Type Department Care Team (Late st Contact Info) Description 10/23/2022 Abstract [facility] [address] [facility] [address] [place] [phone] Himanshu Lea, PT [address] [place] [address] Social History Tobacco Use Types Packs/Day Years [...] on filedocumented in this encounter Care Teams Ancillary Specialist Relationship Specialty Start Date End Date Chris Rand DO [address] [place] [address] PCP - General Family Medicine 08/22/22 documented as of this encounter
--- OUTSIDE RECORDS SUMMARY | 2024-12-11 00:15 | XMS_ITS | Clinical Summary ---
Author Organization [facility] Address [address], [address] [place] [address] Care Team Providers Care Business Development Associate Name Role Phone Chris Rand Levon DO Primary Care Provider +1- [phone] Allergies Active Allergy Reactions Criticality Noted Date [...] tablet by mouth daily Active Glucosamine-Chond roitin-MSM 9698-2061-761 MG PACK Take 1 tablet by mouth [...] 05/09/2017 Shingles vaccine (1 of 2) 05/09/2017 Flu vaccine (#1) 10/08/2024 12/20/2016 COVID-19 Vaccine (1 - 2023-2 5 season) 2024 Breast cancer screen 02/11/2025 02/11/2023 DTaP/Tdap/Td vaccine [...] [facility] MUSE - 08/12/2023 10:37 AM EDT [facility] Patient: MARY ROSENBAUM : 1965 Account: [id number] Sex at : Female Age: 58 Years [...] abscess without bleeding CPT(R) - 2023 copyright [employer]. All Rights Reserved. The CPT codes, CCI edits and ICD codes generated are intended as suggestions and were generated based on input data. These codes are preliminary and upon reuse technician review may be revised to meet current compliance and payer requirements. The provider is responsible for the final determination of appropriate codes, and modifiers. Scope Withdrawal Time: 00:09:36 Elba Urrutia MD This document has been electronically signed. Note Initiated:08/12/2023 Note Completed:08/12/2023 11:05 AM Procedure Note Juli Urrutia MD - 08/12/2023 [facility] Patient: MARY ROSENBAUM : 1965 Account: [id number] Sex at : Female Age: 58 Years [...] orabscess without bleeding CPT(R) - 2023 copyright [employer]. All RightsReserved. The CPT codes, CCI edits and ICD codes generated are intended assuggestions and were generated based on input data. These codes are preliminaryand upon reuse technician review may be revised to meet current [...] Detected Not Detected 05/26/2020 9:45 AM EDT [facility] HPV Type 18 Not Detected Not Detected 05/26/2020 9:45 AM EDT [facility] HPVOH (Other Types) Not Detected Not Detected 05/26/2020 9:45 AM EDT [facility] Comment:*Includes 31,33,35,3 9,45,51,52,56,58,59,66,68 genotypes HPV Comment See below 05/23/2020 3:04 PM EDT [facility] Comment: This is information only. See [...] Eufemia Valadez DO HEMATOLOGY ORDERABLES Final Result [facility] [address] [place] [address], [facility] [phone] [facility] [address] [facility] [place] [address], [facility] [phone] * PAP SMEAR (05/23/2020 3:03 PM EDT) SPECIMEN FROM CERVIX OR VAGINA / Unknown 05/23/2020 3:03 PM EDT 05/24/2020 7:37 AM EDT [facility] - 05/29/2020 11:36 AM EDT [facility] [address] [place] [address] FINAL CYTOLOGY PAP REPORT Patient Name: MARY ROSENBAUM Accession No: [id number] Age Sex: 1965 55 Y / F Location: [facility] Account No: [id number] Collected: 05/23/2020 Med Rec No: [id number] Received: 05/24/2020 Attend Phys: EUFEMIA VALADEZ Completed: 05/29/2020 Perform Phys: EUFEMIA VALADEZ GENERAL CATEGORIZATION: Negative for Intraepithelial Lesion or Malignancy SPECIMEN ADEQUACY: Satisfactory for Evaluation Specimen: THINPREP LIQUID BASE IMAGED DIAGNOSTIC History: Source: Thin Prep Site: Vaginal History: Previous abnormal smear? None given History of CA? None given Lab Order#: [id number] Test Name Collected D&T Result HPV Type [...] (PCR) and nucleic acid hybridization. CPT: Technical: 02843 X1 Screened by: SHARA KRAUSE(ASCP) SHARA KRAUSE(ASCP) [...] processed and screened using a Thin Prep Charge Loader at [facility] [address] [place] [address] All abnormal gynecologic interpretation is performed at [facility], unless otherwise noted in the report. Page 1 of 1 Eufemia Valadez DO PATHOLOGY/CYTOLOGY ORDERABLE S Final Result [facility] [address] [place] [address], [facility] [phone] from Last 3 Months or Most Recently Relevant to Health Maintenance Insurance Advance Directives * Full Code (Latest Code Status on File) Date Activated Date Inactivated Comments 08/12/2023 9:04 AM 08/12/2023 1:34 PM Care Teams Business Development Associate Relationship Specialty Start Date End Date Chris Rand DO [address] [place] [address] PCP - General Family Medicine 08/12/23
--- OUTSIDE RECORDS SUMMARY | 2024-12-11 00:16 | XMS_ITS | Patient Health Record ---
Author Organization [facility] [place] Address [address] [place] [address] Care Team Providers Care Cooling Machine Operator Name Role Phone Rhonafernando Chris HARRELL Primary Care Provider Unava ilable Allergies Allergen [...] Calcium Citrate 1 tablet BID Caclium citrate 976nr-jfscrnw-v in-vit d3 200 gbeg-p5-eutjqne Active VESIcare 10 MG 1 tablet Orally Once a day; Duration: 30 day(s) Active Nabumetone 750 MG Orally No t-Taking Vraylar 3 MG 1 capsule Orally Once a day; Duration: 30 day(s) Active Pantoprazole Sodium 40 MG Orally Active Multivitamin - one tablet Orally Daily one-a-day Active Requip Active Myrbetriq 25 MG Orally Not- Taking Adderall 20 MG 1 TABLET Orally TID Active ARIPiprazole 2 MG 1 tablet Orally Once a day; Duration: 30 day(s) Not-Taking Vitamin E 400 UNIT 1 capsule Orally Once a day Active Advair Diskus 250-50 MCG/ACT 1 puff Inhalation Twice a day Active Baclofen 10 MG Orally PRN Not-T aking PriLOSEC 20 MG 1 capsule Orally Once a day; Duration: 30 day(s) Not-Taking ARIPiprazole 10 MG 1 [...] undergone treatment for drug/alcohol problems: No 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 Employer: [employer] Are you working now: Yes Are you retired: No Are you on disability: No Temporary Disability: No Permanent disability: No Job activities: Reach over head , sit, bend, stand, use computer Hobbies or leisure activities: Reading, Traveling, Fishing Problems Problem Type SNOMED Code ICD Code Onset Dates Problem Status W/U Status Risk Notes Problem Obesity (484867124) Obesity, unspecified (E66.9) Active confirmed Problem Fibromyalgia (019586700) Fibromyalgia (M79.7) Active confirmed Problem Nicotine dependence (06737623) Personal history of nicotine dependence (Z87.891) Active confirmed Problem Vitamin D deficiency (48798488) Vitamin D deficiency (E55.9) Active confirmed Problem Cervical spondylosis without myelopathy (187490590) 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) Active confirmed Problem Cervical myelopathy (676781511) Cervical myelopathy (G95.9) Active confirmed Problem Chronic cough (58110644) Chronic cough (R05.3) Active confirmed Plan Of [...]
--- OUTSIDE RECORDS SUMMARY | 2024-12-11 00:17 | XMS_ITS | Clinical Summary ---
Author Organization [facility] Address [address] [place] [address] Care Team Providers Care Temporary Receptionist Name Role Phone James Rangel Primary Care [...] Insurance [employer] HMO Care Teams Temporary Receptionist Relationship Specialty Start Date End Date James Rangel PCP - General 04/26/03
--- OUTSIDE RECORDS SUMMARY | 2024-12-11 00:19 | XMS_ITS | Clinical Summary ---
Author Organization [facility] Address [address] [place] [address] Care Team Providers Care Patient Support Assistant Name Role Phone Giorgi Chris Levon HARRELL Primary Care Provider +1- [phone] Allergies Active Allergy Reactions Criticality Noted Date [...] capsule by mouth Daily Active Glucosamine-Chondr oitin-MSM 4902-6861-505 MG pack Take 1 tablet by mouth in the morning and 1 tablet before bedtime. Active rosuvastatin (Crestor) 10 MG tabletIndications: Mixed hyperlipidemia TAKE 1 TABLET BY MOUTH DAILY 90 tablet 2 03/31/19 25 Active Semaglutide,0.25 or 0.5MG/DOS, (Ozempic, 0.25 or 0.5 MG/DOSE,) 2 MG/3ML solution pen-injectorIndica tions:Severe obesity (BMI 35.0-39.9) with comorbidity ([facility]),Bipolar [address]),Mixed hyperlipidemia Inject 0.25 mg under the skin 1 (one) time per week 3 mL 1 06/15/19 25 Active pantoprazole (ProtoNix) 40 MG EC tabletIndications: Gastroesophageal reflux disease, unspecified whether esophagitis present TAKE 1 TABLET BY MOUTH DAILY 90 tablet 1 07/09/19 25 Active albuterol HFA 90 mcg/act inhalerIndications :Chronic obstructive bronchitis ([facility]) INHALE 2 PUFFS BY MOUTH EVERY 6 HOURS NEEDED FOR WHEEZING 8.5 g 1 07/13/19 25 Active diclofenac (Voltaren) 50 MG EC tabletIndications: Acute pain of left shoulder TAKE 1 TABLET BY MOUTH 2 TIMES A DAY IN THE MORNING AND AT BEDTIME *DO NOT CRUSH CHEW OR SPLIT* 60 tablet 09/21/19 25 Active rOPINIRole (Requip) 0.25 MG tabletIndications: RLS (restless legs syndrome) TAKE 1 TABLET BY MOUTH AT BEDTIME 30 tablet 2 10/20/19 25 Active Fluticasone-Salmet antonella 250-50 MCG/ACT aerosol powderIndications: Chronic obstructive pulmonary disease, unspecified COPD type ([facility]) Inhale 2 puffs in the morning and 2 puffs before bedtime. 60 each 3 10/28/19 25 Active solifenacin (VESIcare) 10 MG tabletIndications: Urge incontinence of urine TAKE 1 TABLET BY MOUTH DAILY 30 tablet 2 11/20/19 25 Active solifenacin (VESIcare) 10 MG tabletIndications: Urge incontinence of urine TAKE 1 TABLET BY MOUTH DAILY 30 tablet 2 08/24/19 25 025 Discontinued Active Problems Problem Noted [...] Encounters Date Type Department Care Team Description 11/19/2024 Refill [facility] [address] [place] [address] Chris Rand, DO Urge incontinence of urine 10/27/2024 Telephone [facility] [address] [place] [address] Chris Rand, DO Medication Question 10/19/2024 Refill [facility] [address] [place] [address] Chris Rand, DO RLS (restless legs syndrome) 10/14/2024 Telephone [facility] [address] [place] [address] Arleth Chau MA 10/12/2024 Abstract [facility] [address] [place] [address] Chris Rand, 09/19/20[address] [facility] [place] [address] [place] [address] Chris Rand, DO Acute pain of left shoulder from Last 3 Months Family History Medical [...] IS VERY IMPORTANT TO YOUR HEALTH. THE [employer] GUIDELINES RECOMMEND THAT WOMEN 40 [...] IS VERY IMPORTANT TO YOUR HEALTH. THE [employer]UID[employer]INES RECOMMEND THAT WOMEN 40 YEARS [...] VIEWS. ELECTRONICALLY SIGNED BY: Cesar Drew MD us Chris Rand DO IMG BI PROCEDURES Final Re sult * Colonoscopy (03/05/2016 12:00 PM EST) Anatomical Region Laterality Modality Endoscopy 03/05/2016 12:0 0 PM EST Narrative 03/14/2016 12:00 PM EST PERFORMED AT [facility] LOCATION:[id number] normal Procedure Note CONVERSION, GENERIC - 07/25/2022 PERFORMED AT [facility] LOCATION:[id number] normal us Chris Rand DO ENDOSCOPY PROCEDURE ORDERA BLES Final Result from Last 3 Months or Most Recently Relevant to Health Maintenance Insurance [employer] Care Teams Patient Support Assistant Relationship Specialty Start Date End Date Chris Rand DO [address] [address] PCP - General Family Medicine 08/22/22
--- OUTSIDE RECORDS SUMMARY | 2024-12-11 00:20 | XMS_ITS | Encounter Summary ---
Author Organization [facility] Address [address] [place] [address] Care Team Providers Care Billboard Erector Name Role Phone Chris Rand DO Primary Care Provider +1- [phone] Reason for Visit * Reason Comments Med Refill Encounter Details Date Type Department Care Team ([facility] Contact Info) Description [facility] [address] [place] [address] Chris Rand DO [address] [place] [address] Urge incontinence of urine Social History Tobacco [...] incontinence documented in this encounter Care Teams Billboard Erector Relationship Specialty Start Date End Date Chris Rand DO [address] [facility] [facility] [address] [place] [address] PCP - General Family Medicine 6/15/23 documented as of this encounter
--- OUTSIDE RECORDS SUMMARY | 2024-12-11 00:20 | XMS_ITS | Encounter Summary ---
Author Organization [facility] Address [address] [place] [address] Care Team Providers Care Construction Plant Operator Name Role Phone Chris Rand DO Primary Care Provider +1- [phone] Encounter Details Date Type Department Care Team (Late st Contact Info) Description 07/24/2023 Abstract [facility] [address] [facility] [address] [place] [address] Chris Rand DO [address] [facility] [address] [place] [address] Social History Tobacco Use Types Packs/Day Years [...] on filedocumented in this encounter Care Teams Construction Plant Operator Relationship Specialty Start Date End Date Chris Rand DO [address] [facility] [address] [place] [address] PCP - General Family Medicine 08/22/22 documented as of this encounter
--- OUTSIDE RECORDS SUMMARY | 2024-12-11 00:20 | XMS_ITS | Encounter Summary ---
Author Organization [facility] Address [address] [place] [address] Care Team Providers Care Linter Saw Sharpener Name Role Phone Chris Rand DO Primary Care Provider +1- [phone] Encounter Details Date Type Department Care Team (Late st Contact Info) Description 08/11/2023 Orders Only [facility] [address] [place] [address] Chris Rand DO [address] [place] [address] Social History Tobacco Use Types Packs/Day Years [...] on filedocumented in this encounter Care Teams Linter Saw Sharpener Relationship Specialty Start Date End Date Chris Rand DO [address] [place] [address] PCP - General Family Medicine 08/22/22 documented as of this encounter
--- OUTSIDE RECORDS SUMMARY | 2024-12-11 00:20 | XMS_ITS | Encounter Summary ---
Author Organization [facility] Address [address] [place] [address] Care Team Providers Care Paper Machine Tender Name Role Phone Chris Rand DO Primary Care Provider +1- [phone] Encounter Details Date Type Department Care Team (Late st Contact Info) Description 09/03/2024 Abstract [facility] [address] [facility] [address] [place] [address] Chris Rand DO [address] [facility] [address] [place] [address] Social History Tobacco Use Types Packs/Day Years [...] on filedocumented in this encounter Care Teams Paper Machine Tender Relationship Specialty Start Date End Date Chris Rand DO [address] [facility] [address] [place] [address] PCP - General Family Medicine 08/22/22 documented as of this encounter
--- OUTSIDE RECORDS SUMMARY | 2024-12-11 00:21 | XMS_ITS | Encounter Summary ---
Author Organization [facility] Address [address] [place] [address] Care Team Providers Care Tracer Bullet Section Supervisor Name Role Phone Chris Rand DO Primary Care Provider +1- [phone] Reason for Visit * Reason Comments Med Refill Encounter Details Date Type Department Care Team ([facility] Contact Info) Description [facility]/2023 [facility] [address] [facility] [address] [place] [address] Chris Rand DO [address] [place] [address] Acute pain of left shoulder Social History [...] shoulder documented in this encounter Care Teams Tracer Bullet Section Supervisor Relationship Specialty Start Date End Date Chris Rand DO [address] [facility] [address] [place] [address] PCP - General Family Medicine 08/22/22 documented as of this encounter
--- OUTSIDE RECORDS SUMMARY | 2024-12-11 00:22 | XMS_ITS | Encounter Summary ---
Author Organization [facility] Address [address] [place] [address] Care Team Providers Care Senior Cost Analyst Name Role Phone Chris Rand DO Primary Care Provider +1- [phone] Reason for Visit * Reason Comments Med Refill Encounter Details Date Type Department Care Team ([facility] Contact Info) Description 08/17/2024 [facility] [address] [facility] [address] [place] [address] Chris Rand DO [address] [facility] [address] [place] [address] Acute pain of left shoulder Social History [...] AM EDT PA initiated for [facility] through [facility]. Waiting for insurance to respond. documented in this encounter Plan of Treatment Not on file documented as of this encounter Visit Diagnoses Diagnosis Acute pain of left shoulder documented in this encounter Care Teams Senior Cost Analyst Relationship Specialty Start Date End Date Chris Rand DO [address] [facility] [address] [place] [address] PCP - General Family Medicine 08/22/22 documented as of this encounter
--- OUTSIDE RECORDS SUMMARY | 2024-12-11 00:23 | XMS_ITS | Clinical Summary ---
Author Organization [facility] Address [id number] [address] [place] [address] Care Team Providers Care E Business Project Manager Name Role Phone Unavailable Primary Care Provider [...]
--- OUTSIDE RECORDS SUMMARY | 2024-12-11 00:23 | XMS_ITS | Encounter Summary ---
Author Organization [facility] Address [address], [address] [place] [address] Care Team Providers Care Reefer Engineer Name Role Phone Chris Rand DO Primary Care Provider + [phone] Reason for Visit * Reason Comments Medication Refill Encounter Details Date Type Department Care Team (Late st Contact Info) Description 10/27/2018 Refill [facility] [address] [place] [address] James Ruffin DO [address] [place] [address] Medication Refill Social History Tobacco Use Types [...] on filedocumented in this encounter Care Teams Reefer Engineer Relationship Specialty Start Date End Date Chris Rand DO [address] [facility] [address] [place] [address] PCP - General Family Medicine 08/12/23 documented as of this encounter
--- OUTSIDE RECORDS SUMMARY | 2024-12-11 00:24 | XMS_ITS | Encounter Summary ---
Author Organization [facility] Address [address] [place] [address] Care Team Providers Care Spool Fixer Name Role Phone Chris Rand Levon HARRELL Primary Care Provider +1- [phone] Encounter Details Date Type Department Care Team ([facility] st Contact Info) Description 05/11/2024 Orders Only [facility] [address] [place] [address] Himanshu Navarro DO [address] [place] [address] Social History Tobacco Use Types Packs/Day Years [...] on filedocumented in this encounter Care Teams Spool Fixer Relationship Specialty Start Date End Date Chris Rand DO [address] [place] [id number] PCP - General Family Medicine 08/22/22 documented as of this encounter
--- OUTSIDE RECORDS SUMMARY | 2024-12-11 00:24 | XMS_ITS | Encounter Summary ---
Author Organization [facility] Address [address] [place] [address] Care Team Providers Care Brand Strategist Name Role Phone Chris Rand DO Primary Care Provider +1- [phone] Reason for Visit * Reason Comments Med Refill Encounter Details Date Type Department Care Team ([facility] Contact Info) Description [facility] [address] [facility] [address] [place] [address] Chris Rand DO [address] [place] [address] Urge incontinence of urine Social History Tobacco [...] incontinence documented in this encounter Care Teams Brand Strategist Relationship Specialty Start Date End Date Chris Rand DO [address] [facility] [address] [place] [address] PCP - General Family Medicine 6/15/23 documented as of this encounter
--- NOTE | 2024-12-11 00:42 | ED.GENADUL1 ---
HPI HPI - General Adult General Chief complaint: Skin/Abscess/Foreign Body Stated complaint: laceration Time Seen by Provider: 12/11/24 00:03 Source: patient Mode of arrival: walk-in Limitations: no limitations History of Present Illness HPI narrative: 59-year-old female presented to the emergency department for laceration to the right index finger sustained a few hours ago on a sharp piece of her truck, and handle. It has been more than 10 years since a tetanus immunization and this was updated tonight. No weakness or numbness and no other injury was sustained. Related Data Home Medications ?Medication ?Instructions ?Recorded ?Confirmed albuterol sulfate 90 mcg/actuation 2 inh inhalation Q4H PRN shortness 10/12/24 12/11/24 aerosol inhaler of breath or wheezing dextroamphetamine-amphetamine 20 20 mg PO TID 10/12/24 10/12/24 mg tablet diclofenac sodium 50 mg 50 mg PO DAILY 10/12/24 10/12/24 tablet,delayed release duloxetine 20 mg capsule,delayed 20 mg PO DAILY 10/12/24 10/12/24 release fluticasone 250 mcg-salmeterol 50 1 inh inhalation Q12H 10/12/24 10/12/24 mcg/dose blistr powdr for inhalation lamotrigine 25 mg tablet (Lamictal) 25 mg PO Q12H 10/12/24 10/12/24 lamotrigine 25 mg tablet (Lamictal) 25 mg PO Q12H 10/12/24 10/12/24 pantoprazole 40 mg tablet,delayed 40 mg PO DAILY 10/12/24 10/12/24 release ropinirole 0.25 mg tablet 0.25 mg PO DAILY 10/12/24 10/12/24 rosuvastatin 10 mg tablet 10 mg PO DAILY 10/12/24 10/12/24 Allergies Allergy/AdvReac Type Severity Reaction Status Date / Time celecoxib (From Celebrex) Allergy Unknown Hives Verified 12/11/24 00:10 Review of Systems ROS Narrative A ten point review of systems is negative except as noted above. PFSH PFSH Social History Little interest or pleasure in doing things: not at all Feeling down, depressed, or hopeless: not at all Exam Narrative Exam Narrative: Nurses note and vital signs reviewed and patient is not hypoxic. General:The patient appears well and in no apparent distress.Patient is resting comfortably on cart. Skin:Warm, dry, no pallor noted.There is no rash noted. Head:Normocephalic, atraumatic Eye: Normal conjunctiva, no drainage Ears, Nose, Mouth, and Throat: oral mucosa is moist. Nares patent. Cardiovascular:Regular Rate and Rhythm Respiratory:Patient is in no distress, no accessory muscle use Back:non-tender, no CVA tenderness bilaterally to percussion. GI: Soft and nontender Musculoskeletal: There is a J-shaped laceration 2 cm in length on the right index finger adjacent to the nail and approaching the DIP joint. DIP has full range of motion. Nail is unaffected. Minimal bleeding easily controlled with pressure present. Neurological: Awake and alert Psychiatric:Cooperative Constitutional Vital Signs, click to edit/add: Last Vital Signs Temp 97.9 F 12/11/24 00:05 Pulse 99 H 12/11/24 00:05 Resp 16 12/11/24 00:05 BP 135/81 12/11/24 00:05 Pulse Ox 98 12/11/24 00:05 O2 Del Method Room Air 12/11/24 00:05 Course Vital Signs Vital signs: Vital Signs Temperature 97.9 F 12/11/24 00:05 Pulse Rate 99 H 12/11/24 00:05 Respiratory Rate 16 12/11/24 00:05 Blood Pressure 135/81 12/11/24 00:05 Pulse Oximetry 98 12/11/24 00:05 Oxygen Delivery Method Room Air 12/11/24 00:05 Temperature 97.9 F 12/11/24 00:05 Pulse Rate 99 H 12/11/24 00:05 Respiratory Rate 16 12/11/24 00:05 Blood Pressure 135/81 12/11/24 00:05 Pulse Oximetry 98 12/11/24 00:05 Oxygen Delivery Method Room Air 12/11/24 00:05 Medical Decision Making MDM Narrative Medical decision making narrative: The following procedure was performed by me. Finger block was applied with 1% lidocaine without epinephrine resulting in complete skin anesthesia. The area was prepped with Betadine x 3 and draped sterilely and it was explored for foreign bodies and none were found. The wound was then closed with four 5-0 Ethilon sutures resulting in good skin reapproximation and no complications. Hemostasis was achieved. Tube gauze dressing applied and she was sent home with a finger splint to wear in 48 hours after the sutures are removed. Tetanus status was updated tonight. Treatment diagnosis and follow-up were discussed with the patient. Differential Diagnosis Differential Diagnosis: Laceration, need for tetanus immunization Discharge Plan Discharge Chief Complaint: Skin/Abscess/Foreign Body Clinical Impression: Finger laceration Patient Disposition: Home, Self-Care Time of Disposition Decision: 00:41 Condition: Good Mode of Transportation: Private Vehicle Prescriptions / Home Meds: No Action albuterol sulfate 90 mcg/actuation HFA aerosol inhaler 2 inh INHALATION Q4H PRN (Reason: shortness of breath or wheezing) dextroamphetamine-amphetamine 20 mg tablet 20 mg PO TID diclofenac sodium 50 mg tablet,delayed release (DR/EC) 50 mg PO DAILY fluticasone propion-salmeterol 250-50 mcg/dose blister with device 1 inh INHALATION Q12H pantoprazole 40 mg tablet,delayed release (DR/EC) 40 mg PO DAILY ropinirole 0.25 mg tablet 0.25 mg PO DAILY rosuvastatin 10 mg tablet 10 mg PO DAILY duloxetine 20 mg capsule,delayed release(DR/EC) 20 mg PO DAILY lamotrigine [Lamictal] 25 mg tablet 25 mg PO Q12H lamotrigine [Lamictal] 25 mg tablet 25 mg PO Q12H Print Language: Japanese Instructions: Finger Laceration (ED) Additional Instructions: Leave tube gauze on for 48 hours. Remove and apply bandage daily and use splint until sutures are removed in 7 to 10 days. Referrals: NORMA LORENZO [Primary Care Provider, Unknown] - 1 week
[2024-12-11] MEDS: DIPHTH,PERTUSS(ACELL),TET VAC 0.5 ML SYRINGE IM (00:49)
[2024-12-11] MEDS: LIDOCAINE HCL 1% 100 MG/10 ML MDV INJ (00:49)
--- NOTE | 2024-12-11 00:57 | XR_ITS ---
The [address] [address] Patient Name: MARY ROSENBAUM MRN: [id number] date: 1965 Sex: F Assigned Patient Location: ER Current Patient Location: Accession/Order Number: [id number] Exam Date: 12/11/2024 01:18 Report Date: 12/11/2024 08:36 At the request of: CELENA PARNELL MD Procedure: XR finger RT min 2V Right second digit 2 views Reason for exam: Distal laceration right index finger. COMPARISON: None. FINDINGS: Soft tissue swelling is present. No radiopaque foreign body. There appears to be a fracture along the dorsal aspect of the distal phalanx of the second digit. There is moderate degeneration of the DIP joint. No bony erosions. XR/XR finger RT min 2V IMPRESSION: Soft tissue swelling with possible fracture involving the dorsal aspect of the distal phalanx of the second digit. Impression dictated by: Roman Montauge Jr., D.OConchis 12/11/2024 8:36 AM Dictation Location: [facility] Electronically authenticated by: [id number] Y Date: 12/11/2024 08:36
== END 2024-12-11 01:48 | disposition home or self-care (01) ==
PROVIDERS: Emergency Provider Emergency Medicine; PCP Family Medicine
DX: S61.210A Laceration without foreign body of right index finger without damage to nail, initial encounter (principal); W26.8XXA Contact with other sharp object(s), not elsewhere classified, initial encounter; Z23 Encounter for immunization
CPT/HCPCS: 12001; 73140; 90471; 90715; 99284